=== PATIENT | male | born 1960 | race Caucasian/White ===

== ENCOUNTER 2018-08-13 09:19 | Inpatient (IN) | payer MEDICARE, OTHER ==
[~2018-08-13] VITALS: Ht 182.9 cm; Wt 104.7 kg
[~2018-08-13 09:19] MED LIST: ALBU90OI INH; Prednisone20 MG PO; SULTRIDS PO; Zithromax250 MG PO
[2018-08-13 10:36] LABS: BASOPHILS ABSOLUTE AUTO 0.18 K/mm3 (0.00-0.23); BASOPHILS PERCENT AUTO 1 % (0-2); EOSINOPHILS PERCENT AUTO 0 % (0-6); Hematocrit 42.2 % (37.0-53.0); Hemoglobin 14.3 g/dL (13.5-17.5); IMMATURE GRAN ABSOLUTE AUTO 1.21 K/mm3 (0.00-0.10); IMMATURE GRAN PERCENT AUTO 3 % (0-1); LYMPHOCYTES ABSOLUTE AUTO 1.85 K/mm3 (0.84-5.20); LYMPHOCYTES PERCENT AUTO 5 % (21-46); MONOCYTES ABSOLUTE AUTO 2.56 K/mm3 (0.16-1.47); MONOCYTES PERCENT AUTO 7 % (4-13); Mean Corpuscular HGB 33.6 pg (26.0-34.0); Mean Corpuscular HGB Conc 33.9 g/dL (31.5-36.5); Mean Corpuscular Volume 99 fL (80-100); Mean Platelet Volume 10.6 fL (9.1-12.4); NEUTROPHILS ABSOLUTE AUTO 33.36 K/mm3 (1.96-9.15); NEUTROPHILS PERCENT AUTO 85 % (41-73); Platelet Count 641 K/mm3 (150-400); RDW Coefficient Variation 13.2 % (11.7-14.2); RDW Standard Deviation 48.2 fL (35.1-46.3); Red Blood Cell Count 4.26 M/mm3 (4.30-5.90); White Blood Cell Count 39.16 K/mm3 (4.00-11.30)
[2018-08-13 10:42] LABS: PCO2 Arterial 36.4 mmHg (35-45); PO2 Arterial 49.9 mmHg (80-100); pH Blood Arterial 7.52 (7.35-7.45)
[2018-08-13 10:45] LABS: Calcium, Ionized (POC) 0.89 mmol/L (1.10-1.46); Chloride (POC) 96 mmol/L (98-108); Creatinine (POC) 0.7 mg/dL (0.8-1.3); Glucose (ISTAT POC) 219 mg/dL (70-99); Hemoglobin (POC) 14.6 g/dL (13.5-17.5); Potassium (POC) 4.8 mmol/L (3.5-5.5); Sodium (POC) 134 mmol/L (135-148); Total CO2 (POC) 30 mmol/L (21-32)
[2018-08-13 10:57] LABS: Alanine Aminotransfer (ALT/SGP 42 U/L (12-78); Albumin, Blood 1.8 g/dL (3.4-5.0); Albumin/Globulin Ratio 0.3 (0.8-1.8); Alk Phos 108 U/L (50-136); Anion Gap 14 mmol/L (6-16); Aspartate Aminotrans (AST/SGOT 39 U/L (12-37); Bilirubin, Total 0.9 mg/dL (0.1-1.0); Blood Urea Nitrogen 12 mg/dL (8-24); Bun/Creatinine Ratio 15.4 (12.0-20.0); CO2, Blood 26 mmol/L (21-32); Calcium, Blood 8.3 mg/dL (8.5-10.1); Chloride, Blood 94 mmol/L (98-108); Creatinine, Blood 0.78 mg/dL (0.60-1.20); Globulin, Blood 5.7 g/dL (2.2-4.0); Glomerular Filtration Rate >60 (60-); Glucose, Blood 212 mg/dL (70-99); Sodium, Blood 134 mmol/L (136-145); Total Protein, Blood 7.5 g/dL (6.4-8.2); Troponin I <0.015 ng/mL (0.000-0.040)
[2018-08-13 11:47] LABS: Source, Urine Catheter
[2018-08-13 11:54] LABS: Bilirubin, Urine Neg (Neg); Blood, Urine Neg (Neg); Glucose Qualitative, Urine Neg (Neg); Ketones, Urine Neg (Neg); Leukocyte Esterase, Urine 1+ (Neg); Nitrite, Urine Neg (Neg); Protein, Urine 2+ (Neg); Urobilinogen, Urine 4+ (Normal)
[2018-08-13 12:00] LABS: PCO2 Arterial 40.3 mmHg (35-45); PO2 Arterial 73.7 mmHg (80-100); pH Blood Arterial 7.45 (7.35-7.45)
[2018-08-13 12:08] LABS: Appearance, Urine Clear (Clear); Color, Urine Yellow (P-Yellow)
[2018-08-13 12:11] LABS: Bacteria Few /hpf; Granular Casts 0-2 /lpf (0); Hyaline Casts Rare /lpf (0-2); Red Blood Cells, Urine Not Seen /hpf (0-2); Squamous Epithelial Cells Few /hpf (Few)
[2018-08-13] MEDS ORDERED: AMLO5 PO (13:31)
[2018-08-13 14:00] LABS: Influenza A Negative (NEGATIVE); Influenza B Negative (NEGATIVE)
[2018-08-13 14:30] LABS: International Normalized Ratio 1.13; Prothrombin Time Results 11.6 Sec (9.7-11.5)
--- NOTE | 2018-08-13 16:30 | NUR ---
Recieved report from ROOF FOREMAN and took patient for pig tail chest tube in [place]. patient was slightly hypotensive and recieved order to have Levophed if drops MAP less than HR 60. He was intubated and OG in place. He has two IV's in L arm and infusing NS at 100ml/hr and changed to 200mlhr per order. He has 8.0 ET and 25cm at lips with vent setting AC16, TV 400, FiO2 100% and PEEP 5.0 and sats 90-92%. He is sedated with 65 mcg/min Propofol. He has several VS drops during procedure from laying almost supine for tube placement. He had 12Fr pigtail chest tub placed left posterior and they capped and chaim 50ml fluids for lab. He had BM during procedure. RT and i at 1600 pushed him to ICU 13 and several nursees assisted to clean up prior to transfer. He was slide transfer to ICU 13 bed and bath was given and all line and tubes cleaned up. His RR 30-45's. We hooked up drain bag and quickly got 1500 ml creamy white liquid with horrific smell and Dr Borges came by and stated to clamp and un clamp at 0400.
[2018-08-13 16:43] LABS: Albumin, Body Fluid 0.1 g/dL; Lactate Dehydrogenase, Body Fl 108 U/L; Protein, Body Fluid 0.3 g/dL
[2018-08-13 16:44] LABS: RBC Count, Body Fluid 180000 /mm3 (0-0)
[2018-08-13 16:50] LABS: Glucose, Body Fluid <1 mg/dL
[2018-08-13 17:02] LABS: Body Fluid WBC Count 63310 /mm3 (0-999)
[2018-08-13 18:28] LABS: Appearance, Body Fluid Cloudy (Clear); Color, Body Fluid L Yellow (None-Yellow)
--- NOTE | 2018-08-13 18:30 | NUR ---
Patient has RR of mid 40's and have tried Fentanyl and Ativan and little success and gave report to Jocelyn RN and Elsie RN and stated we could start Precedex to try to help RR. His Temp has climbed to 102.2 and gave 650mg Tylenol through OG and clampped. Placed fan as well on him to help cool. at 1700 he was reduced to FiO2 to 75% and has remain in the low 90%'s. Reported to them to unclamp tube at 0400. Son and came by and helpped with admission but had little knowledge. They stated they will take him home when dischaerged to take care of him, Number on board.
[2018-08-13 18:38] LABS: Total Cell Count, Body Fluid 100
[2018-08-13 18:50] LABS: pH, Body Fluid 7.5
--- NOTE | 2018-08-13 21:57 | NUR ---
ASSUMED CARE REPORT RECEIVED, CARE ASSUMED AT 1900. PT INTUBATED AND SEDATED. RR ELEVATED, PT FEBRILE AND HYPOTENSIVE. PRECEDEX, LEVOPHED INITIATED. RR IMPROVED WITH PRECEDEX, ATIVAN AND FENTANYL ADMIN BUT DOES CONTINUE TO BE ELEVATED. WET TOWEL PLACED OVER PATIENT FOR COOLING, FAN ALSO IN PLACE. CHEST TUBE CLAMPED PER MD ORDERS, TO BE UNCLAMPED AND DRAINED AT 0400. EUBANKS SECURED AND IN PLACE, DRAINING PINK/RED, FOUL SMELLING URINE. SEE ASSESSMENTS/FLOWSHEETS.
[2018-08-14 03:39] LABS: BASOPHILS ABSOLUTE AUTO 0.16 K/mm3 (0.00-0.23); BASOPHILS PERCENT AUTO 1 % (0-2); Hematocrit 40.6 % (37.0-53.0); Hemoglobin 13.1 g/dL (13.5-17.5); LYMPHOCYTES ABSOLUTE AUTO 1.58 K/mm3 (0.84-5.20); LYMPHOCYTES PERCENT AUTO 6 % (21-46); MONOCYTES ABSOLUTE AUTO 0.43 K/mm3 (0.16-1.47); MONOCYTES PERCENT AUTO 2 % (4-13); Mean Corpuscular HGB 33.6 pg (26.0-34.0); Mean Corpuscular HGB Conc 32.3 g/dL (31.5-36.5); Mean Platelet Volume 10.6 fL (9.1-12.4); Platelet Count 501 K/mm3 (150-400); RDW Coefficient Variation 13.5 % (11.7-14.2); RDW Standard Deviation 51.8 fL (35.1-46.3); White Blood Cell Count 26.37 K/mm3 (4.00-11.30)
[2018-08-14 03:41] LABS: EOSINOPHILS PERCENT AUTO 0 % (0-6); IMMATURE GRAN ABSOLUTE AUTO 0.11 K/mm3 (0.00-0.10); IMMATURE GRAN PERCENT AUTO 0 % (0-1); Mean Corpuscular Volume 104 fL (80-100); NEUTROPHILS ABSOLUTE AUTO 24.09 K/mm3 (1.96-9.15); NEUTROPHILS PERCENT AUTO 91 % (41-73)
[2018-08-14 03:59] LABS: Alanine Aminotransfer (ALT/SGP 30 U/L (12-78); Albumin, Blood 1.3 g/dL (3.4-5.0); Albumin/Globulin Ratio 0.3 (0.8-1.8); Alk Phos 68 U/L (50-136); Anion Gap 6 mmol/L (6-16); Aspartate Aminotrans (AST/SGOT 23 U/L (12-37); Bilirubin, Total 0.5 mg/dL (0.1-1.0); Blood Urea Nitrogen 10 mg/dL (8-24); Bun/Creatinine Ratio 16.4 (12.0-20.0); CO2, Blood 28 mmol/L (21-32); Calcium, Blood 7.8 mg/dL (8.5-10.1); Chloride, Blood 105 mmol/L (98-108); Creatinine, Blood 0.61 mg/dL (0.60-1.20); Globulin, Blood 4.7 g/dL (2.2-4.0); Glomerular Filtration Rate >60 (60-); Glucose, Blood 229 mg/dL (70-99); Potassium, Blood 3.5 mmol/L (3.5-5.5); Sodium, Blood 139 mmol/L (136-145)
[2018-08-14 04:03] LABS: PCO2 Arterial 49.8 mmHg (35-45); PO2 Arterial 71.6 mmHg (80-100); pH Blood Arterial 7.36 (7.35-7.45)
[2018-08-14 04:04] LABS: BAND PERCENT MAN 23 % (0-8); BASOPHILS PERCENT MAN 0 % (0-2); EOSINOPHILS PERCENT MAN 0 % (0-6); LYMPHOCYTES ABSOLUTE MAN 1.31 K/mm3 (0.84-5.20); LYMPHOCYTES PERCENT MAN 5 % (21-46); METAMYELOCYTE ABSOLUTE MAN 1.84 K/mm3 (0.00-0.00); METAMYELOCYTE PERCENT MAN 7 % (0-0); MONOCYTES ABSOLUTE MAN 0.79 K/mm3 (0.16-1.47); MONOCYTES PERCENT MAN 3 % (4-13); NEUTROPHILS ABSOLUTE MAN 22.41 K/mm3 (1.96-9.15); SEG NEUTROPHILS PERCENT MAN 62 % (41-73); TOTAL CELLS COUNTED 100
--- NOTE | 2018-08-14 04:35 | NUR ---
CHEST TUBE DRAINAGE PER MD ORDER, CHEST TUBE UNCLAMPED AT 0400. 200 ML REMOVED FROM BAG PRIOR TO UNCLAMPING. 200 ML DRAINED AFTER UNCLAMPING. BAG ALSO FILLED WITH AIR AND REQUIRED VENTING OF AIR FOR FURTHER DRAINAGE TO OCCUR. CONTINUES TO BE UNCLAMPED, DRAINING TO GRAVITY. PLAN TO CLAMP IF 1500 ML DRAINS. NO CHANGES IN 02 SATURATION. BREATH SOUNDS TO LEFT LUNG INCREASED WITH COARSENESS AND CRACKLES IN BASES.
--- NOTE | 2018-08-14 04:57 | NUR ---
VITALS/SEDATION UPDATE SINCE PT'S FEVER IMPROVED THIS MORNING, PT HAS HAD EPISODE OF DIAPHORESIS THAT WAS RESPONSIVE TO THE ADMINISTRATION OF LORAZEPAM. PT HAS TOLERATED DECREASED PROPOFOL WITH THE PRECEDEX INFUSING. RR IMPROVED FROM 40'S AND 50'S TO HIGH 20'S WITH THIS REGIME. LEVOPHED TURNED OFF PT'S BP HAS STABALIZED. HR CONTINUES IN 80'S.
--- NOTE | 2018-08-14 05:48 | NUR ---
SEDATION VACATION/WEAN SLOWLY TITRATED DOWN SEDATION PT TOLERATING. NO SPONTANEOUS BREATHING TRIAL FIO2 GREATER THAN 50%, 02 SAT LOW 90'S, RR CONTINUE TO BE ELEVATED.
--- NOTE | 2018-08-14 06:19 | NUR ---
SUMMARY PT REMAINS INTUBATED AND SEDATED. SEE PREVIOUS FLOWSHEETS/NOTES/ASSESSMENTS. SINCE PREVIOUS NOTE, CHEST TUBE CONTINUES TO BE TO GRAVITY DRAIN WITH SLOW OUTPUT.
--- NOTE | 2018-08-14 07:20 | NUR ---
RECEIVED REPORT AND ASSUMED CARE OF PATIENT. HE IS INTUBATED AND SEDATED AT THIS TIME. PROPOFOL AT 30 MCG/KG/MIN, PRECEDEX AT 0.7 MCG/KG/HR. VENT SETTINGS AT 16/400/5/80%. LUNG SOUNDS ARE COARSE T/O AND CRACKLES B/L LOWER LOBES. POST PIGTAIL LINE IS DRAINING TO GRAVITY, EUBANKS CATH IS DRAINING TO GRAVITY.
--- NOTE | 2018-08-14 08:10 | NUR ---
[id number] OF PATIENT CALLED TO GET AN UPDATE ON CONDITION, SHE STATED PT TOLD SHE AND HER THAT HE STOPPED DRINKING ALCOHOL ON 08/02, SHE WILL TRY TO VERIFY INFORMATION.
--- NOTE | 2018-08-14 10:43 | NUR ---
DR JACOBSON IN TO SEE PATIENT, CHANGE VENT SETTING TO SPONTANEOUS WITH PRESSURE SUPPORT OF 10, PEEP 5 AND FIO2 OF 60%. DISCUSSED STARTING TUBE FEED FOR THIS PATIENT. CONSULT WILL BE PLACED BY
[2018-08-14 13:52] LABS: Vancomycin, Trough 12.9 ug/mL (5.0-10.0)
--- NOTE | 2018-08-14 14:15 | NUR ---
RECEIVED REPORT FROM GLORIA SAVAGE RN, [facility], PATIENT IS VENTED AND SEDATED VIA PROPOFOL, INFUSING AT 30 MCG, EUBANKS CATHETER IN PLACE, OG TUBE AT LIS, MINIMAL OUTPUT, PIGTAIL DRAIN TO RIGHT POSTERIOR CHEST AREA DRAINING MILKY LIQUID, VENT SETTINGS ARE A/C 16/8 VT 400, FiO2 60 %, PATIENT IN RESTRAINTS, VANCOMYCIN INFUSING, WILL CONTINUE TO MONITOR.
--- NOTE | 2018-08-14 15:00 | NUR ---
RT IN TO ADVANCE ETT TUBE BY 3 CM TO A TOTAL OF 28 CM AT LIP, TUBE FEED STARTED ORDERED, PIVOT 1.5, STARTED AT 15 CC/HR, ADVANCE BY 10 CC/HR EVERY 8 HOURS WITH A GOAL OF 45 CC/HR, WATER FLUSHES 30 CC EVERY 4 HOURS, WILL CONTINUE TO MONITOR.
--- NOTE | 2018-08-14 15:20 | NUR ---
Spiritual care/advance directive visit attempted. Patient unable to communicate at this time.
--- NOTE | 2018-08-14 17:30 | NUR ---
PATIENT DAUGHTER IN LAW ON PHONE, UPDATE PROVIDED.
--- NOTE | 2018-08-14 17:50 | NUR ---
SHIFT SUMMARY NOTE: ASSUMED CARE OF PATIENT AT 1415 HOURS, PATIENT IS MECHANICALLY VENTILATED, SETTINGS ARE 16/5, VT 400, FiO2 60%, PATIENT IS SEDATED WITH PROPOFOL INFUSING AT 30 MCG/KG/HR, ALSO PRECEDEX INFUSING AT 0.7 MCG/KG/HR, EUBANKS CATHETER IN PLACE, DRAINING ADQUEATE AMOUNTS OF DARK YELLOW CLOUDY URINE, LEFT POSTERIOR PIGTAIL SHOWS MILKY AND CLOUDY DRAINAGE THAT HAS EXTREMELY FOUL SMELLING ODOR , PATIENT IS IN RESTRAINTS, TOLERATING FREQUENT REPOSITIONING WELL, ETT TUBE WAS ADVANCED BY 3 CM BY RT, PATIENT TOLERATED WELL, TUBE FEED STARTED AT 15 CC/HR TO BE INCREASED BY 10 CC/HR EVERY 8 HOURS, WITH 30 CC WATER FLUSH EVERY 4 HOURS, BANANA BAG INFUSING, FOR DETAILS SEE SHIFT ASSESSMENT DOCUMENTATION WILL CONTINUE TO MONITOR AND GIVE REPORT TO ONCOMING FUNERAL DIRECTOR AND EMBALMER.
--- NOTE | 2018-08-14 19:35 | NUR ---
CARE ASSUMED REPORT RECEIVED, CARE ASSUMED. PT INTUBATED AND SEDATED WITH PROPOFOL AND PRECEDEX. BILAT WRIST RESTRAINTS IN PLACE. PIGTAIL CHEST TUBE TO LEFT POSTERIOR CHEST CONTINUES TO BE UNCLAMPED TO GRAVITY DRAIN WITH SLOW DRAINAGE. EUBANKS DRAINING CAREN URINE. OG INFUSING PIVOT 1.5 AT 15 ML/HR. PLAN IS TO ADVANCE QH8 BY 10 FOR [employer] OF 45 ML/HR. VITALS STABLE, SEE FLOWSHEEET. SEE SHIFT ASSESSMENT.
--- NOTE | 2018-08-15 00:50 | NUR ---
SEDATION REASSESSMENT PT CONTINUES TO HAVE INCREASED RESPIRATIONS WITH ONLY SLIGHT IMPROVEMENT FROM FENTANYL. WITH BATH PT NOTED TO HAVE MINIMAL RESPONSES. PROPOFOL TITRATED DOWN TO ATTEMPT ART TRACER SEDATION FOR NEUROLOGICAL MONITORING. SINCE TITRATION RESPIRATIONS HAVE REMAINED CONSISTENT. WILL CONTINUE TO MONITOR CLOSELY AND TITRATE PRECEDEX AND PROPOFOL PT TOLERATES.
[2018-08-15 04:06] LABS: Hematocrit 36.2 % (37.0-53.0); Hemoglobin 11.8 g/dL (13.5-17.5); Mean Corpuscular HGB 33.7 pg (26.0-34.0); Mean Corpuscular HGB Conc 32.6 g/dL (31.5-36.5); Mean Corpuscular Volume 103 fL (80-100); Mean Platelet Volume 10.8 fL (9.1-12.4); Platelet Count 418 K/mm3 (150-400); RDW Coefficient Variation 13.6 % (11.7-14.2); RDW Standard Deviation 52.1 fL (35.1-46.3); White Blood Cell Count 25.32 K/mm3 (4.00-11.30)
[2018-08-15 04:24] LABS: Alanine Aminotransfer (ALT/SGP 19 U/L (12-78); Albumin/Globulin Ratio 0.2 (0.8-1.8); Alk Phos 64 U/L (50-136); Anion Gap 5 mmol/L (6-16); Aspartate Aminotrans (AST/SGOT 33 U/L (12-37); Bilirubin, Total 0.4 mg/dL (0.1-1.0); Blood Urea Nitrogen 13 mg/dL (8-24); Bun/Creatinine Ratio 19.3 (12.0-20.0); CO2, Blood 30 mmol/L (21-32); Calcium, Blood 7.4 mg/dL (8.5-10.1); Chloride, Blood 110 mmol/L (98-108); Creatinine, Blood 0.67 mg/dL (0.60-1.20); Globulin, Blood 4.2 g/dL (2.2-4.0); Glomerular Filtration Rate >60 (60-); Glucose, Blood 169 mg/dL (70-99); Magnesium, Blood 2.5 mg/dL (1.6-2.4); Phosphorus, Blood 1.4 mg/dL (2.5-4.9); Sodium, Blood 145 mmol/L (136-145); Total Protein, Blood 5.2 g/dL (6.4-8.2)
[2018-08-15 04:26] LABS: BAND PERCENT MAN 18 % (0-8); BASOPHILS PERCENT MAN 0 % (0-2); EOSINOPHILS PERCENT MAN 0 % (0-6); LYMPHOCYTES PERCENT MAN 2 % (21-46); METAMYELOCYTE ABSOLUTE MAN 0.25 K/mm3 (0.00-0.00); METAMYELOCYTE PERCENT MAN 1 % (0-0); MONOCYTES ABSOLUTE MAN 0.75 K/mm3 (0.16-1.47); MONOCYTES PERCENT MAN 3 % (4-13); SEG NEUTROPHILS PERCENT MAN 76 % (41-73); TOTAL CELLS COUNTED 100
--- NOTE | 2018-08-15 06:10 | NUR ---
SEDATION/NEURO STATUS AFTER SLOW TITRATION, PT AROUSE TO VERBAL STIMULI AND FOLLOWED COMMANDS. RE-SEDATED FOR INCREASED RESPIRATIONS AND SPASMATIC COUGHING.
--- NOTE | 2018-08-15 07:09 | NUR ---
SUMMARY PT INTUBATED, VENT SETTINGS UNCHANGED THROUGOUT SHIFT. NO SBT THIS MORNING PER RT PT'S FIO2 ELEVATED. UNABLE TO TITRATE FIO2 DUE TO LOW 90'S SPO2. VITALS STABLE THROUGHOUT SHIFT. PT TOLERATING TUBE FEEDS WITH MINIMAL RESIDUALS. CHEST TUBE CONTINUES TO DRAIN CREAM FLUID. ODOR OF FLUID DECREASING. SEE FLOWSHEETS/ASSESSMENTS.
--- NOTE | 2018-08-15 07:15 | NUR ---
START OF SHIFT NOTE: PATIENT CONTINUOUS ON MECHANICAL VENTILATION, SEDATED VIA PROPOFOL AT 20 MCG/KG/HR, PRECEDEX AT 0.4 MCG/KG/HR, ORAL CARE PROVIDED, EUBANKS CATHETER IN PLACE, LEFT POSTERIOR PIGTAIL DRAIN WITH MINIMAL AMOUNT OF MILKY WHITE DRAINAGE, LS CLEAR, NSR, BTS PRESENT, SKIN INTACT WILL CONTINUE TO MONITOR.
--- NOTE | 2018-08-15 09:32 | NUR ---
DR. JACOBSON IN TO SEE PATIENT, SPONTANEOUS BREATHING TRIAL STARTED BY RT TINY, AT 0925, PROPOFOL DECREASED TO 10 MCG AND PRECEDEX DECREASED TO 0.2, WILL CONTINUE TO MONITOR.
--- NOTE | 2018-08-15 10:11 | NUR ---
SDPONTANEOUS BREATHING TRIAL STOPPED PER DR. JACOBSON, D/T PATIENT SHOWING A SMALL LEFT APICAL PNEUMOTHORAX, RT IN ROOM WITH PATIENT, REINSTATING ORIGINAL SETTINGS.
[2018-08-15 13:18] LABS: Vancomycin, Trough 17.7 ug/mL (5.0-10.0)
--- NOTE | 2018-08-15 17:59 | NUR ---
SHIFT SUMMARY NOTE: PATIENT CONTINUOUS TO BE VENTED, SETTINGS ARE 16/5, VT 400, FiO2 100 %, RT IN MULTIPLE TIMES TO SUCTION PATIENT, LEFT POSTERIOR PIGTAIL DRAIN IN PLACE AND DRAINING THICK MILKY LIQUID WITH FOUL SMELL, DR. JACOBSON NOTIFIED ABOUT PATIENT'S VENT SETTINGS, NSR/ST, RR FLUCTUATING BETWEEN 20-40, PATIENT SEDATED WITH PROPOFOL AT 30 MCG, AND PRECEDEX AT 0.7 AT THIS TIME, PER DR. JACOBSON INCREASE SEDATION TO MAXIMUM IF NEEDED AND TELEPHONE ORDER TO INCREASE PEEP TO 8, IF PATIENT DOES WELL, DECREASE PEEP SLOWLY DURING NIGHT BY RT, PATIENT ON SODIUM BICARB, VANCOMYCIN AND ZOSYN, ALSO RECEIVED POSTASSIUM CHLORIDE AND POTASSIUM PHOSPHATE REPLACEMENT, ELECTROLYTE PROTOCOL IN PLACE, EUBANKS CATHETER DRAINING ADEQUATE AMOUNT OF CLOUDY YELLOW URINE, FOR DETAILS SEE SHIFT ASSESSMENT DOCUMENTATION, WILL CONTINUE TO MONITOR AND GIVE REPORT TO ONCOMING END PACKER.
--- NOTE | 2018-08-15 21:01 | NUR ---
CARE ASSUMED REPORT RECEIVED, CARE ASSUMED. PT REMAINS INTUBATED AND SEDATED. RR ELEVATED, MEDICATED WIH FENTANYL. VENT SETTING REQUIRMENTS INCREASED, RESPIRATORY THERAPY AT BEDSIDE TO DISCUSS PLAN OF TITRATING FIO2 PT TOLERATES ONCE RR IS BETTER CONTROLLED. PIGTAIL CHEST TUBE TO LEFT POSTERIOR CONTINUES TO BE IN PLACE. MINIMAL OUTPUT NOTED AT THIS TIME. PT MINIMALLY RESPONSIVE TO PAIN. CLENCHES JAW WITH ORAL CARE. TEMP ELEVATED, MEDICATED WITH TYLENOL AND SHEETS REMOVED. BP/HR STABLE. EUBANKS CONTINUES TO DRAIN CLEAR YELLOW URINE. TUBE FEED AT GOAL RATE. SEE FLOWSHEETS. SEE ASSESSMENTS.
--- NOTE | 2018-08-16 | NUR ---
ASSUMED CARE REPORT AND ASSESSMENT COMPLETED. PT INTUBATED AT AC16/400/60%/5 AND SEDATED VIA PROPOFOL AND PRECEDEX. TF AT GOAL, RESIDUAL AT 40ML. MEDICATED WITH FENTANYL D/T RR >40, PER AM REPORT PROPOFOL NOT TO BE TITRATED >45. LEFT LATERAL PIG TAIL IN PLACE WITH MINIMAL OUTPUT. VSS, UOP ADEQUATE.
[2018-08-16 04:12] LABS: Hematocrit 34.8 % (37.0-53.0); Hemoglobin 11.2 g/dL (13.5-17.5); Mean Corpuscular HGB 32.8 pg (26.0-34.0); Mean Corpuscular HGB Conc 32.2 g/dL (31.5-36.5); Mean Corpuscular Volume 102 fL (80-100); Mean Platelet Volume 10.9 fL (9.1-12.4); Platelet Count 433 K/mm3 (150-400); RDW Coefficient Variation 14.1 % (11.7-14.2); RDW Standard Deviation 53.1 fL (35.1-46.3); Red Blood Cell Count 3.41 M/mm3 (4.30-5.90); White Blood Cell Count 26.12 K/mm3 (4.00-11.30)
[2018-08-16 04:30] LABS: BAND PERCENT MAN 10 % (0-8); BASOPHILS PERCENT MAN 0 % (0-2); EOSINOPHILS PERCENT MAN 0 % (0-6); LYMPHOCYTES ABSOLUTE MAN 1.56 K/mm3 (0.84-5.20); LYMPHOCYTES PERCENT MAN 6 % (21-46); MONOCYTES ABSOLUTE MAN 0.78 K/mm3 (0.16-1.47); MONOCYTES PERCENT MAN 3 % (4-13); MYELOCYTE ABSOLUTE MAN 0.26 K/mm3 (0.00-0.00); MYELOCYTE PERCENT MAN 1 % (0-0); SEG NEUTROPHILS PERCENT MAN 80 % (41-73); TOTAL CELLS COUNTED 100
[2018-08-16 04:32] LABS: Alanine Aminotransfer (ALT/SGP 21 U/L (12-78); Albumin/Globulin Ratio 0.2 (0.8-1.8); Alk Phos 84 U/L (50-136); Anion Gap 6 mmol/L (6-16); Aspartate Aminotrans (AST/SGOT 38 U/L (12-37); Bilirubin, Total 0.3 mg/dL (0.1-1.0); Blood Urea Nitrogen 15 mg/dL (8-24); Bun/Creatinine Ratio 23.4 (12.0-20.0); CO2, Blood 28 mmol/L (21-32); Calcium, Blood 6.8 mg/dL (8.5-10.1); Chloride, Blood 113 mmol/L (98-108); Creatinine, Blood 0.64 mg/dL (0.60-1.20); Globulin, Blood 4.3 g/dL (2.2-4.0); Glomerular Filtration Rate >60 (60-); Glucose, Blood 182 mg/dL (70-99); Magnesium, Blood 2.4 mg/dL (1.6-2.4); Phosphorus, Blood 2.4 mg/dL (2.5-4.9); Potassium, Blood 3.3 mmol/L (3.5-5.5); Sodium, Blood 147 mmol/L (136-145); Total Protein, Blood 5.3 g/dL (6.4-8.2)
--- NOTE | 2018-08-16 05:58 | NUR ---
CALL TO DR JACOBSON UPDATED MD ON IONIZED CALCIUM LEVEL AND SODIUM. DR ORDERED CA GLUCONATE AND WILL REVIEW SODIUM LATER TODAY. WILL ORDER ADDITIONAL ELECTROLYTE REPLACEMENT OFF ELECTROLYTE PROTOCOL.
--- NOTE | 2018-08-16 06:20 | NUR ---
SHIFT SUMMARY PT REMAINS INTUBATED, NO CHANGE TO PREVIOUSLY NOTED SETTINGS. PROPOFOL NOW AT 35MCG/KG/MIN WITH PRECEDEX AT 0.7MCG/KG/HR. PT HAS BEEN MEDICATED X 4 WITH FENTANYL TO DECREASE RR >40. LEFT LATERAL CHEST PIGTAIL REMAINS IN PLACE WITH LESS FOUL SMELLING FLUID THIS SHIFT, TRACHEA MIDLINE, NO SQ AIR. TF AT GOAL W/ MINIMAL RESIDUALS. NO SBT COMPLETED D/T RESPIRATORY RATE WHILE ON SEDATION CONSISTENTLY >40.
--- NOTE | 2018-08-16 08:47 | NUR ---
RECEIVED REPORT AND ASSUMED CARE OF PATIENT. PT IS SEDATED AND INTUBATED AT THIS TIME. PT RR 35-40, ADMINISTERED 100 MCG OF FENTYNAL. VENT SETTINGS 16/400/8/50%. PROPOFOL RUNNING AT 35, PRECEDEX RUNNING AT 0.7. TUBE FEEDING CONTINUING AT 45. POST PIGTAIL DRAINING TO GRAVITY, EUBANKS DRAINING TO GRAVITY.
--- NOTE | 2018-08-16 11:10 | NUR ---
DR JACOBSON AT BEDSIDE TO DO ULTRASOUND. VISUALIZED LUNGS AND WILL DO A BRONCOSCOPY. CONSENT OBTAINED FROM [id number] AT BEDSIDE AND SON VIA TELEPHONE.
--- NOTE | 2018-08-16 12:58 | NUR ---
DR JACOBSON AT BEDSIDE TO DO BRONCOSCOPE PROCEDURE. RT AT BEDSIDE. GAVE VERSED AND FENTYNAL PER VERBAL ORDER, SEE MAR FOR DOSE DETAILS.
[2018-08-16 13:26] LABS: Potassium, Blood 4.1 mmol/L (3.5-5.5); Vancomycin, Trough 18.6 ug/mL (5.0-10.0)
--- NOTE | 2018-08-16 18:11 | NUR ---
SHIFT SUMMARY: PATIENT HAS CONTINUED TO BE INTUBATED AND SEDATED THROUGHOUT THE SHIFT. PROPOFOL AT 35 MCG/KG/MIN, PRECEDEX AT 0.7 MCG/KG/HR. VENT SETTINGS ARE AC: 16/400/8/55%, RR 26 AT THIS TIME. PT HAS RESPONDED WELL TO FENTYNAL DRIP STARTED TODAY, RUNNING AT 100 MCG/HOUR, PT HAS RESPONDED WELL AND B/P HAS CONTINUED TO BE STABLE. TEMP IS AT 100.8, ONE DOSE TYLENOL GIVEN DURING THIS SHIFT. WILL CONTINUE TO MONITOR PATIENT AND GIVE REPORT TO SABRINA RN.
--- NOTE | 2018-08-16 19:15 | NUR ---
ASSUMING CARE OF PT AT THIS TIME. PT REPORT RECEIVED AT BEDSIDE WITH OFFGOING NURSES, GLORIA RN AND ENEDINA RN. PT LAYING IN BED, INTUABTED AND SEDATED UPON ENTERING THE ROOM. VS STABLE - SEE VS FS. PT DOES NOT APPEAR TO BE IN DISTRESS AT THIS TIME. WILL REVIEW PLAN OF CARE.
--- NOTE | 2018-08-16 19:30 | NUR ---
ASSESSMENT PT CALM, QUIET, COOPERATIVE, RESPONDS TO VERBAL STIMULI, SPONT OPENS EYES, NODDING HEAD Y/N TO MOST QUESTIONS, FOLLOWS COMMADNS (ABLE TO MOVE TOES AND LIVESTOCK PRODUCER ON COMMAND), SLOW TO RESPOND, TRAKCING WITH EYES. PRECEDEX DRIP 0.7 MCG/KG/HR - BREANA TITRATE TO EFFECT. PROPOFOL 35 MCG/KG/MIN - WILL TITRATE TO EFFECT. SENSATION INTACT. PT DENIES N/T. PT LINARES. WEAKNESS NOTED. PT DENIES PAIN/DISCOMFORT AT THIS TIME. CONT FENT DRIP @ 100 MCG/HR. LUNGS COARSE, LOWER LOBES DIMINISHED. VENT SETTINGS: AC 16, TV 400, PEEP 8, FIO2 55%. OXY SAT 90%. RR 30'S. SUCTION VIA ETT: LARGE AMOUNTS OF THIN CLEAR SECRETIOSN. BRONCH COMPLETED THIS AM. TEMP 100.8 - ROOM TEMP DOWN, BLANKETS OFF, FAN ON, TYLENOL PRN. ST. HR 110'S. BP STABLE - SEE VS FS. STRONG PULSES. WARM, PINK SKIN. EDEMA NOTED. ACTIVE BT X4 QUADRANTS. ABD SOFT, NONTENDER, MOD DIST. OG IN PLACE. TF: PIVOT 1.5 AT GOAL RATE 45 ML/HR AND 150ML FLUSH Q4 HR. RESIDUAL 40 ML. F/C - CLEAR, YELLOW URINE NOTED. PIV X1. PICC RUCHI. NS TKO AT 10 ML/HR X2 BAGS. BANANA BAG INFUSING. PIGTAIL LEFT POSTERIOR WALL DRAINIGN TO GRAVITY - CLEAR, YELLOW TO THICK WHITE SECERTIONS NOTED.
--- NOTE | 2018-08-16 20:20 | NUR ---
DR. JACOBSON CURRENT VENT SETTINGS: AC 16, TV 400, PEEP 8, FIO2 100%. JAVIER RT AND MAGGIE ADAMSON CONT TO TITRATE FIO2 TO MAINTAIN SPO2 90% AND GREATER. CONT LARGE AMOUNTS OF CLEAR/WHITE SECRETIONS. DECREASING SECRETIONS NOTED. RR 40'S. INCREASED PROPOFOL DRIP 45 MCG/KG/MIN. [facility] INSTRUCTED TO NOT EXCEED PROPOFOL 45 MCG/KG/MIN. PRECEDEX 0.7 MCG/KG/HR. FENT 100 MCG/HR. PT DENIES PAIN/DISCOMFORT. RR DECREASED TO 30'S AFTER TITRATING PROPOFOL. UPDATED DR. JACOBSON OF PT'S STATUS. DR. JACOBSON INSTRUCTED TO ORDER STAT CHEST XRAY FOR POSSIBLE PNEUMOTHORAX. BRICK CARRIER INFORMED OF STAT CHEST XRAY. DR. CELESTE INSTRUCTED TO CONT TO SUCTION INDICATED. DR. JACOBSON ALSO INSTRUCTED TO INCREASE PEEP UP TO 12 IF INDICATED. INFROMED RT JAVIER OF NEW VENT ORDER. DR. JACOBSON ALSO ORDERED NIXBEX DRIP IF RR REMAINS 40'S AND GREATER.
--- NOTE | 2018-08-16 20:58 | NUR ---
DR. PHOENIX CALLED DR. PHOENIX TO VIEW CHEST XRAY. DR. PHOENIX STATED "THERE ARE NO CHANGES FROM PREVIOUS CHEST XRAY".
--- NOTE | 2018-08-16 22:50 | NUR ---
DR. JACOBSON PROPOFOL 45 MCG/KG/MIN. PRCEDEX 0.7 MCG/KG/HR. FENT 100 MCG/HR. VENT SETTINGS: AC 16, TV 400, PEEP 10, FIO2 90%. RR 20'S TO 30'S. OCC INCREASE PEAK PRESSURE TO 30'S. DOUBLE STACKING OF BREATHS. INFORMED DR. JACOBSON OF PT'S STATUS. DR. JACOBSON DOES NOT WANT TO INCREASE SEDATION AT THIS TIME. DR. JACOBSON DOES NOT WANT TO START NIMBEX AT THIS TIME. DR. JACOBSON INSTRUCTED TO START NIMBEX DRIP IF RR 40'S. NO NEW ORDERS AT THIS TIME.
[2018-08-17 03:29] LABS: Hematocrit 35.1 % (37.0-53.0); Hemoglobin 11.1 g/dL (13.5-17.5); Mean Corpuscular HGB 33.5 pg (26.0-34.0); Mean Corpuscular HGB Conc 31.6 g/dL (31.5-36.5); Mean Platelet Volume 10.9 fL (9.1-12.4); Platelet Count 413 K/mm3 (150-400); RDW Coefficient Variation 14.5 % (11.7-14.2); RDW Standard Deviation 56.4 fL (35.1-46.3); Red Blood Cell Count 3.31 M/mm3 (4.30-5.90); White Blood Cell Count 25.09 K/mm3 (4.00-11.30)
[2018-08-17 03:34] LABS: Mean Corpuscular Volume 106 fL (80-100)
[2018-08-17 03:48] LABS: BAND PERCENT MAN 3 % (0-8); BASOPHILS PERCENT MAN 0 % (0-2); EOSINOPHILS PERCENT MAN 4 % (0-6); LYMPHOCYTES PERCENT MAN 4 % (21-46); MONOCYTES ABSOLUTE MAN 1.25 K/mm3 (0.16-1.47); MONOCYTES PERCENT MAN 5 % (4-13); NEUTROPHILS ABSOLUTE MAN 21.82 K/mm3 (1.96-9.15); SEG NEUTROPHILS PERCENT MAN 84 % (41-73); TOTAL CELLS COUNTED 100
[2018-08-17 03:49] LABS: Alanine Aminotransfer (ALT/SGP 25 U/L (12-78); Albumin/Globulin Ratio 0.2 (0.8-1.8); Alk Phos 85 U/L (50-136); Anion Gap 5 mmol/L (6-16); Aspartate Aminotrans (AST/SGOT 27 U/L (12-37); Bilirubin, Total 0.3 mg/dL (0.1-1.0); Blood Urea Nitrogen 14 mg/dL (8-24); Bun/Creatinine Ratio 22.8 (12.0-20.0); CO2, Blood 29 mmol/L (21-32); Calcium, Blood 7.3 mg/dL (8.5-10.1); Chloride, Blood 113 mmol/L (98-108); Creatinine, Blood 0.61 mg/dL (0.60-1.20); Globulin, Blood 4.3 g/dL (2.2-4.0); Glomerular Filtration Rate >60 (60-); Glucose, Blood 135 mg/dL (70-99); Magnesium, Blood 2.2 mg/dL (1.6-2.4); Phosphorus, Blood 3.3 mg/dL (2.5-4.9); Potassium, Blood 4.1 mmol/L (3.5-5.5); Sodium, Blood 147 mmol/L (136-145); Total Protein, Blood 5.3 g/dL (6.4-8.2)
--- NOTE | 2018-08-17 04:43 | NUR ---
SHIFT ASSESSMENT PT CALM, QUIET, COOPERATIVE, RESPONDS TO VERBAL STIMULI, SPONT OPENS EYES, NODDING HEAD Y/N TO QUESTIONS, FOLLOWS COMMANDS (ABLE TO MVOE TOES AND GILL BOX OPERATOR ON COMMAND), SLOW TO RESPOND, TRACKING WITH EYES. PRECEDEX 0.7 MCG/KG/HR - CONT TO TITRATE TO EFFECT. PROPOFOL 45 MCG/KG/MIN - CONT TO TITRATE TO EFFECT. SENSATION INTACT. DENIES N/T. PT LINARES. WEAKNESS NOTED. PT DENIED PAIN/DISCOFMORT T/O SHIFT, BUT OCC FACIAL GRIMACING NOTED. CONT FENT DRIP AT 100 MCG/HR. LUNGS COARSE, LOWER LOBES DIMINISHED. VENT SETTINGS: AC 16, TV 400, PEEP 10, FIO2 70%. PEEP INCREASED FROM 8 TO 10 DURING SHIFT D/T OXY SAT <90%. CONT TO TITRATE FIO2 TO MAINTIAN SPO2 90% AND GREATER. RR 16 TO 40'S T/O SHIFT. DECREASED RR NOTED WITH INCREASING SEDATION. DECREASING SUCTION VIA ETT T/O SHIFT. CURRENTLY SUCTIONING SCANT AMOUNTS OF THIN CLEAR SECRETIONS. TMAX 100.9 - TYLENOL PRN, ROOM TEMP DOWN, BLANKETS OFF, FAN ON. NSR TO ST. HR 70'S TO 110'S. BP STABLE - SEE VS FS. STRONG PULSES. WARM, PINK SKIN. EDEMA NOTED. ACTIVE BT X4 QUADRATNS. ABD SOFT, NONTENDER, MOD DIST. OG IN PLACE. TF: PIVOT 1.5 AT GOAL RATE 45 ML/HR ADN 150 ML FLUSH Q4 HR. LAST RESIDUAL 200 ML. F/C - CLEAR YELLOW URINE NOTED. PIV X1 - SL. NS TKO AT 10 ML/HR. CHEST TUBE LEFT POSTERIOR WALL DRAINING TO GRAVITY - CLEAR, YELLOW TO THICK WHITE SECRETIONS NOTED. WILL CONT TO MONITOR PT AND WILL PROVIDE BEDSIDE REPORT TO ONCOMING NURSE THIS AM.
--- NOTE | 2018-08-17 06:28 | NUR ---
DR. KAVON JACOBSON CALLED ICU AT THIS TIME. UPDATED DR. JACOBSON OF PT'S STATUS. NO NEW ORDERS AT THIS TIME. DR. JACOBSON DOES NOT WANT AM CHEST XRAY.
--- NOTE | 2018-08-17 08:20 | NUR ---
RECEIVED REPORT AND ASSUMED CARE OF PATIENT. HE IS INTUBATED AND SEDATED AT THIS TIME. PROPOFOL RUNNING AT 45 MCG/KG/MIN, PRECEDEX AT 0.7 MCG/KG/HR AND FENTYNAL AT 125 MCG/HOUR. PT VENT SETTINGS ARE 16/400/10/65%. WHEN FIRST ASSESSING PT, HE IS ASYCHRONOUS WITH THE VENT. INCREASED FENTYNAL FROM 100 MCG TO 150 MCG. PT HAS EUBANKS DRAINING TO GRAVITY AND POSTERIOR PIGTAIL CHEST DRAINING TO GRAVITY. DISCHARGE FOR THE CHEST DRAIN IS THICKER AND MORE MUCOUS LOOKING THIS AM FROM YESTERDAY DAY SHIFT. WILL CONTINUE TO MONITOR. PT IS DIAPHORETIC AND CLAMMY, CHANGED FAN POSITION, PUT COOL CLOTHS ON PATIENT AND WILL CONTINUE TO MONITOR TEMP AND TREAT PER ORDERS.
--- NOTE | 2018-08-17 18:41 | NUR ---
SHIFT SUMMARY: PT REMAINS INTUBATED AND SEDATED THROUGHOUT THE SHIFT. PROPFOL RUNNING AT 40 MCG/KG/MIN, PRECEDEX AT 0.7 MCG/KG/HR AND FENTYNAL RUNNING AT 75 MCG/HR. VENT SETTINGS 16/400/10/60% RR HAS BEEN RANGING BETWEEN 20-30. FAMILY AND FRIENDS AT BEDSIDE OFF AND ON DURING SHIFT. PT CONTINUES TO BE DIAPHORETIC, USING FAN AND TREATING FEVER WHEN NECESSARY. EUBANKS DRAINING TO GRAVITY. PIGTAIL CHEST DRAIN TO GRAVITY ONLY SCANT AMOUNT OF DISCHARGE INTO BAG, NOT ENOUGH TO COUNT ON THIS SHIFT. DR LOVE HAD US USE ATIVAN PUSHES THAT WERE HELPFUL TODAY, USED 1 MG TWO TIMES. WILL CONTINUE TO MONITOR AND GIVE REPORT TO SABRINA SERRANO.
--- NOTE | 2018-08-17 19:15 | NUR ---
ASSUMING CARE OF PT AT THIS TIME. PT REPORT RECEIVED AT BEDSIDE WITH OFFGOING NURSE, GLORIA SERRANO. PT LAYING IN BED, INTUBATED AND SEDATED UPON ENTERING THE ROOM. VS STABLE - SEE VS FS. PT DOES NOT APPEAR TO BE IN DISTRESS AT THIS TIME. WILL REVIEW PLAN OF CARE.
--- NOTE | 2018-08-17 19:30 | NUR ---
ASSESSMENT PT CALM, RESPONDS TO PAINFUL STIMULI, SPONT OPENING EYES, NOT TRACKING WITH EYES, NOT NODDING HEAD Y/N TO QUESTIONS, NOT FOLLOWING COMMANDS. PRECEDEX DRIP 0.7 MCG/KG/HR - WILL TITRATE TO EFFECT. TITRATED PROPOFOL DRIP TO 35 MCG TO DECREASE SEDATION - WILL TITRATE TO EFFECT. GENEVA SENSATION. PT LINARES. GROSS, WEAK MOVEMENT. LESS MOVEMENT NOTED THIS PM. NO S/SX OF PAIN/DISCOFMORT NOTED. CONT FENT DRIP @ 75 MCG/HR. LUNGS COARSE, MIDDLE AND LOWER LOBES DIMINISHED. VENT SETTINGS: AC 16, TV 400, PEEP 10, FIO2 65%. OXY SAT >95%. RR 16. SUCTION VIA ETT: SMALL AMOUNTS OF THICK WHITE/CLEAR SECRETIONS. TEMP 100.6 - ROOM TEMP DOWN, BLANKET SOFF, FAN ON, TYLENOL PRN. ST. HR 100'S TO 110'S. BP STABLE - SEE VS FS. STRONG PULSES. WARM, PNK SKIN. EDEMA NOTED. ACTIVE BT X4 QUADRANTS. ABD SOFT, NONTENDER, MOD DIST. OG IN PLACE. TF: PIVOT 1.5 AT GOAL RATE 45 ML/HR AND 150 ML FLUSH Q4 HR. RESIDUAL 0. F/C - CLEAR, YELLOW URINE NOTED. PIV X1. PICC RUCHI. NS TKO AT 10 ML/HR X2 BAGS. BANANA BAG INFUSING. CHEST TUBE LEFT POSTERIOR WALL DRAINING TO GRAVIEYT - CLEAR, YELLOW TO THICK WHITE SECRETIONS, CLOUDY.
--- NOTE | 2018-08-17 20:35 | NUR ---
DR. IVAN LOVE IN ROOM TO SEE PT AT THIS TIME. DR. LOVE INSTRUCTED TO STOP BANANA BAG AT THIS TIME. BANANA BAG D/C AT THIS TIME. DR. LOVE INSTRUCTED TO CONT TO MINIMIZE SEDATION. OTHERWISE, NO NEW ORDERS AT THIS TIME.
--- NOTE | 2018-08-17 20:42 | NUR ---
DR. LOVE INCREASING BP NOTED WITH DECREASING SEDATION. DR. LOVE ORDERED PRN HYDRALAZINE FOR HYPERTENSION.
[2018-08-18 03:37] LABS: BASOPHILS ABSOLUTE AUTO 0.13 K/mm3 (0.00-0.23); BASOPHILS PERCENT AUTO 1 % (0-2); EOSINOPHILS ABSOLUTE AUTO 0.27 K/mm3 (0.00-0.68); EOSINOPHILS PERCENT AUTO 1 % (0-6); Hematocrit 37.1 % (37.0-53.0); Hemoglobin 11.4 g/dL (13.5-17.5); IMMATURE GRAN ABSOLUTE AUTO 1.29 K/mm3 (0.00-0.10); IMMATURE GRAN PERCENT AUTO 5 % (0-1); LYMPHOCYTES ABSOLUTE AUTO 1.44 K/mm3 (0.84-5.20); LYMPHOCYTES PERCENT AUTO 5 % (21-46); MONOCYTES ABSOLUTE AUTO 1.05 K/mm3 (0.16-1.47); MONOCYTES PERCENT AUTO 4 % (4-13); Mean Corpuscular HGB 33.5 pg (26.0-34.0); Mean Corpuscular HGB Conc 30.7 g/dL (31.5-36.5); Mean Platelet Volume 11.2 fL (9.1-12.4); NEUTROPHILS ABSOLUTE AUTO 22.93 K/mm3 (1.96-9.15); NEUTROPHILS PERCENT AUTO 85 % (41-73); Platelet Count 413 K/mm3 (150-400); RDW Coefficient Variation 14.5 % (11.7-14.2); RDW Standard Deviation 58.7 fL (35.1-46.3); White Blood Cell Count 27.11 K/mm3 (4.00-11.30)
[2018-08-18 03:38] LABS: Mean Corpuscular Volume 109 fL (80-100)
[2018-08-18 03:56] LABS: BAND PERCENT MAN 1 % (0-8); BASOPHILS PERCENT MAN 0 % (0-2); EOSINOPHILS ABSOLUTE MAN 0.27 K/mm3 (0.00-0.68); EOSINOPHILS PERCENT MAN 1 % (0-6); LYMPHOCYTES ABSOLUTE MAN 1.62 K/mm3 (0.84-5.20); LYMPHOCYTES PERCENT MAN 6 % (21-46); MONOCYTES ABSOLUTE MAN 0.54 K/mm3 (0.16-1.47); MONOCYTES PERCENT MAN 2 % (4-13); NEUTROPHILS ABSOLUTE MAN 24.67 K/mm3 (1.96-9.15); SEG NEUTROPHILS PERCENT MAN 90 % (41-73); TOTAL CELLS COUNTED 100
[2018-08-18 04:05] LABS: Alanine Aminotransfer (ALT/SGP 31 U/L (12-78); Albumin/Globulin Ratio 0.2 (0.8-1.8); Alk Phos 101 U/L (50-136); Anion Gap 3 mmol/L (6-16); Aspartate Aminotrans (AST/SGOT 28 U/L (12-37); Bilirubin, Total 0.3 mg/dL (0.1-1.0); Blood Urea Nitrogen 16 mg/dL (8-24); CO2, Blood 32 mmol/L (21-32); Calcium, Blood 7.6 mg/dL (8.5-10.1); Chloride, Blood 111 mmol/L (98-108); Creatinine, Blood 0.53 mg/dL (0.60-1.20); Globulin, Blood 4.7 g/dL (2.2-4.0); Glomerular Filtration Rate >60 (60-); Glucose, Blood 186 mg/dL (70-99); Magnesium, Blood 2.2 mg/dL (1.6-2.4); Phosphorus, Blood 2.1 mg/dL (2.5-4.9); Potassium, Blood 5.1 mmol/L (3.5-5.5); Sodium, Blood 146 mmol/L (136-145); Total Protein, Blood 5.7 g/dL (6.4-8.2)
--- NOTE | 2018-08-18 04:32 | NUR ---
SHIFT ASSESSMENT NO ACUTE CHANGES NOTED T/O SHIFT. INCREASING LOC NOTED T/O SHIFT. PT CALM, COOPERATIVE, RESPONDS TO VERBAL STIMULI, SPONT OPENS EYES, TRACKING WITY EYES, NODDING HEAD Y/N TO MOST QUESTIONS, FOLLOWING COMMANDS (ABLE TO MOVE TOES AND DEPUTY OF COUNTER INTELLIGENCE ON COMMAND). PRECEDEX DRIP 0.7 MCG/KG/HR - CONT TO TITRATE TO EFFECT. PROPOFOL 30 MCG/KG/MIN - CONT TO TITRATE TO EFFECT. SENSATION ITNACT. PT DENIES N/T. PT LINARES. WEAKNESS MOVEMENT THIS AM. INCREASED WEAKNESS AND LESS MOVEMENT NOTED THIS PM. OCC FACIAL GRIMACING AND RESTLESSNESS NOTED, BUT PT DENIES PAIN/DISCOMFORT THIS AM. CONT FENT DRIP AT 50 MCG/HR. LUNGS COARSE, MIDDLE AND LOWER LOBES DIMINISHED. VENT SETTINGS: AC 16, TV 400, PEEP 10, FIO2 35%. OXY SAT >90%. RR 16 TO 30'S. SUCTION VIA ETT: SMALL AMOUTNS OF THICK WHITE/CLEAR SECRETIONS. TMAX 100.7 - ROOM TEMP DOWN, BLANKETS OFF, FAN ON, TYLENOL PRN. ST. HR 100'S TO 110'S. INCREASING BP NOTED WITH PT CARE. OTHERWISE BP STABLE - SEE VS FS. STRONG PULSES. WAMR, PINK SKIN. EDEMA NOTED. ACTIVE BT X4 QUADRANTS. ABD SOFT, NONTENDER, MOD DIST. OG IN PLACE. TF: PIVOT 1.5 AT GOAL RATE 45 ML/HR AND 150 ML FLUSH Q4 HR. RESIDUAL WNL. F/C - CLEAR, YELLOW URINE NOTED. PIV X1. PICC RUCHI. NS TKO AT 10 ML/HR. CHEST TUBE LEFT POSTERIOR WALL DRAINING TO GRAVITY - CLEAR, YELLOW TO THICK WHITE CLOUDY SECRETIONS. WILL CONT TO MONITOR PT AND WILL PROVIDE BEDSIDE REPORT TO ONCOMING NURSE THIS AM.
--- NOTE | 2018-08-18 04:59 | NUR ---
DR. ROSE CALLED DR. ROSE AT [facility] TIME. INFORMED DR. ROSE OF AM LABS. DR. ROSE DOES NOT WANT TO REPLACE PHOS THIS AM D/T HIGH SODIUM AND RISING POTASSIUM.
[2018-08-18 05:28] LABS: PCO2 Arterial 55.8 mmHg (35-45); PO2 Arterial 60.4 mmHg (80-100); pH Blood Arterial 7.38 (7.35-7.45)
--- NOTE | 2018-08-18 09:55 | NUR ---
RECEIVED REPORT AND ASSUMED CARE OF PATIENT. HE IS SITTING UP IN BED, VERY RESPONSIVE TO INTERACTIONS. NODDING YES/NO TO QUESTIONS AT THIS TIME. PROVIDED AM CARE AND REPOSITIONED PATIENT. HE CONTINUES TO BE SEDATED AND INTUBATED PROPFOL AT 30 MCG/KG/MIN, FENTYNAL AT 50 MCG/HR, AND PRECEDEX AT 0.7 MCG/KG/HR. PT APPEARS ANXIOUS, GAVE ATIVAN 1 MG. VENT SETTINGS AT 16/400/10/35%. LUNGS ARE VERY COARSE T/O, DIM B/L LOWER GEIGER.
--- NOTE | 2018-08-18 10:10 | NUR ---
DR. DESOUZA IN TO SEE PATIENT. DID NOT MAKE ANY CHANGES AT THIS TIME.
--- NOTE | 2018-08-18 12:42 | NUR ---
DR LOVE IN TO SEE PATIENT. ASSESSMENT OF PATIENT, DISCUSSED HOME B/P MEDICATION, SHE WOULD LIKE TO START AMLODIPINE 5 MG DAILY STARTING TODAY. ADDITIONALLY, SHE FLUSHED THE POST PIGTAIL CHEST DRAIN FOR PATENCY. DR ASKED PATIENT BE SWITCHED TO A BED THAT CAN PROVIDE CHEST PHYSIOTHERAPY. CHANGED BED AND STARTED THERAPY PER DOCTORS ORDERS.
--- NOTE | 2018-08-18 18:18 | NUR ---
SHIFT SUMMARY: PT CONTINUES TO BE SEDATED AND INTUBATED. PROPFOL RUNNING AT 40 MCG/KG/MIN, FENYTNAL AT 50 MCG/HR AND PRECEDEX AT 0.7 MCG/KG/HR. VENT SETTINGS ARE 16/400/10/35%, RR HAS BEEN BETWEEN 20'S-30'S THROUGHOUT THE SHIFT. CHEST PHYSIOTHERAPY BED IN PLACE TODAY, INCREASE IN COUGH REFLEX AND NEED FOR SUCTIONING. WHEN PT IS SUCTIONED, THICK MUCOUSY SECRETIONS, WHITE IN COLOR. FAMILY AT BEDSIDE OFF AND ON DURING SHIFT. EUBANKS CATH AND PIGTAIL CHEST TUBE BOTH DRAINING TO GRAVITY. CHEST TUBE FLUSHED FOR PATENCY BY DR. LOVE TODAY. OUTPUT IS SCANT AMOUNT OF MUCOUSY FLUID. WILL CONTINUE TO MONITOR AND GIVE REPORT TO SABRINA SERRANO.
--- NOTE | 2018-08-18 19:15 | NUR ---
ASSUMING CARE OF PT AT THIS TIME. PT REPORT RECEIVED AT BEDSIDE WITH OFFGOING NURSES, GLORIA RN AND ENEDINA RN. PT LAYING IN BED, INTUBATED AND SEDATED UPON ENTERING THE ROOM. VS STABLE - SEE VS FS. PT DOES NOT APPEAR TO BE IN DISTRESS AT THIS TIME. WILL REVIEW PLAN OF CARE.
--- NOTE | 2018-08-18 19:30 | NUR ---
ASSESSMENT PT CALM, COOPERATIVE, RESPONDS TO VERBAL STIMULI, SPONT OPENS EYES, TRACKIGN WITH EYES, NODDING HEAD Y/N TO MOST QUESTIONS, FOLLOWS COMMANDS (ABLE TO MOVE TOES AND DISTRIBUTOR OPERATOR ON COMMAND). PRECEDEX DRIP 0.7 MCG/KG/HR - WILL CONT TO TITRATE TO EFFECT. PROPOFOL DRIP 30 MCG/KG/MIN - WILL CONT TO TITRATE TO EFFECT. SENSATION INTACT. PT DENIES N/T. PT LINARES. INCREASES WEAKNESS AND LESS MOVEMENT NOTED THIS PM. OCC FACIAL GRIMACING. PT DENIES PAIN/DISCOMFORT. CONT FENT DRIP AT 50 MCG/HR. LUNGS COARSE, MIDDLE AND LOWER LOBES DIMINIHSED. VENT SETTINGS: AC 16, TV 400, PEEP 10, FIO2 35%. LAVON, RT DECREASED FIO2 TO 30%. OXY SAT >90%. RR 20'S. SUCTION VIA ETT: SMALL AMOUNTS OF THICK WHITE/CLEAR SECRETIONS. LARGE AMOUNTS OF THICK WHITE/CLEAR SECRETIONS POST BED CPT. TEMP 99.0 - ROOM TEMP DOWN, BLANKETS OFF, FAN ON. NSR. HR 90'S. BP STABLE - SEE VS FS. STRONG PULSES. WARM, PINK SKIN. INCREASED EDEMA NOTED. HYPERACTIVE BT X4 QUADRANTS. ABD SOFT, NONTENDER, MOD DIST. OG IN PLACE. TF: PIVOT 1.5 AT GOAL RATE 45 ML/HR AND 150 ML FLUSH Q4 HR. RESIDUAL 110. F/C - CLEAR YELLOW URINE NOTED. PIV X1. PICC RUCHI. NS TKO AT 10 ML/HR. CHEST TUBE LEFT POSTERIOR WALL DRAINING TO GRAVITY - CLEAR, YELLOW TO THICK WHITE CLOUDY SECRETIONS, MINIMAL OUTPUT.
[2018-08-19 03:28] LABS: BASOPHILS ABSOLUTE AUTO 0.05 K/mm3 (0.00-0.23); BASOPHILS PERCENT AUTO 0 % (0-2); EOSINOPHILS ABSOLUTE AUTO 0.34 K/mm3 (0.00-0.68); EOSINOPHILS PERCENT AUTO 2 % (0-6); Hematocrit 34.6 % (37.0-53.0); Hemoglobin 10.7 g/dL (13.5-17.5); IMMATURE GRAN ABSOLUTE AUTO 0.59 K/mm3 (0.00-0.10); IMMATURE GRAN PERCENT AUTO 3 % (0-1); LYMPHOCYTES ABSOLUTE AUTO 1.69 K/mm3 (0.84-5.20); LYMPHOCYTES PERCENT AUTO 10 % (21-46); MONOCYTES ABSOLUTE AUTO 0.94 K/mm3 (0.16-1.47); MONOCYTES PERCENT AUTO 5 % (4-13); Mean Corpuscular HGB 32.8 pg (26.0-34.0); Mean Corpuscular HGB Conc 30.9 g/dL (31.5-36.5); Mean Corpuscular Volume 106 fL (80-100); Mean Platelet Volume 10.9 fL (9.1-12.4); NEUTROPHILS ABSOLUTE AUTO 14.19 K/mm3 (1.96-9.15); NEUTROPHILS PERCENT AUTO 80 % (41-73); Platelet Count 412 K/mm3 (150-400); RDW Coefficient Variation 14.4 % (11.7-14.2); RDW Standard Deviation 56.8 fL (35.1-46.3); Red Blood Cell Count 3.26 M/mm3 (4.30-5.90)
[2018-08-19 03:46] LABS: Anion Gap 5 mmol/L (6-16); Blood Urea Nitrogen 15 mg/dL (8-24); CO2, Blood 33 mmol/L (21-32); Calcium, Blood 7.8 mg/dL (8.5-10.1); Chloride, Blood 111 mmol/L (98-108); Creatinine, Blood 0.56 mg/dL (0.60-1.20); Glomerular Filtration Rate >60 (60-); Glucose, Blood 137 mg/dL (70-99); Magnesium, Blood 2.1 mg/dL (1.6-2.4); Phosphorus, Blood 2.4 mg/dL (2.5-4.9); Potassium, Blood 4.5 mmol/L (3.5-5.5); Sodium, Blood 149 mmol/L (136-145)
--- NOTE | 2018-08-19 04:20 | NUR ---
DR. LOVE CALLED DR. LOVE AT THIS TIME. INFORMED DR. LOVE OF LABS. NO NEW ORDERS AT THIS TIME. DR. LOVE DOES NOT WANT TO REPLACE CHRISTIANO THIS AM.
--- NOTE | 2018-08-19 06:14 | NUR ---
SHIFT ASSESSMENT NO ACUTE CHANGES NOTED T/O SHIFT. OCC AGITATION AND RESTLESSNESS NOTED WITH PT CARE, ESPECIALLY WITH BED CPT AND ORAL CARE. OTHERWISE, PT CALM, COOPERATIVE, RESPONDS TO VERBAL STIMULI, SPONT OPENS EYES, TRACKING WITH EYES, NODDING HEAD Y/N TO QUESTIONS, FOLLOWS COMMADNS (ABLE TO MOVE TOES AND HEALTH INSURANCE SALES AGENT ON COMMAND). PRECEDEX 0.7 MCG/KG/HR - CONT TO TITRATE TO EFFECT. PROPOFOL DRIP 40 MCG/KG/MIN - CONT TO TITRATE TO EFFECT. PRN ATIVAN ADMINISTERED T/O SHIFT. SENSATION INTACT. PT DENIES N/T. PT LINARES. INCREASED WEAKNESS AND LESS MOVEMENT NOTED THIS PM. OCC FACIAL GRIMACING AND RESTLESSNESS. PT DENIES PAIN/DISCOMFORT. CONT FENT DRIP AT 50 MCG/HR. LUNGS COARSE, MIDDLE AND LOWER LOBES DIMINISHED. VENT SETTINGS: AC 16, TV 400, PEEP 10, FIO2 40%. CONT TO TITRATE FIO2 TO MAINTAIN SPO2 90% AND GREATER. RR 20'S TO 30'S. SUCTION VIA ETT: LARGE AMOUNTS OF THICK WHITE/CLEAR SECRETIONS POST BED CPT. TMAX 99.6 - ROOM TEMP DOWN, BLANKETS OFF, FAN ON. NSR TO ST. HR 70'S TO 110'S. BP STABLE (SEE VS FS). INCREASED HR, BP AND RR NOTED WITH AGITATION AND RESTLESSNESS. STRONG PULSES. WARM, PINK SKIN. INCREASED EDEMA NOTED THIS PM. HYPERACTIVE BT X4 QUADRANTS. ABD SOFT, NONTENDER, MOD DIST. OG IN PLACE. TF: PIVOT 1.5 AT GOAL RATE 45 ML/HR AND 150 ML FLUSH Q4 HR. RESIDUAL WNL. F/C - CLEAR YELLOW URIEN NOTED. PICC RUCHI. CHEST TUBE LEFT POSTERIOR WALL DRAINIGN TO GRAVITY - CLEAR YELLOW TO THICK WHITE CLOUDY SECRETIONS, MINIAL OUTPUT. WILL CONT TO MONITOR PT AND WILL PROVIDE BEDSIDE REPORT TO ONCOMING NURSE THIS AM.
--- NOTE | 2018-08-19 09:48 | NUR ---
0715-ASSUMED CARE OF PT. PT IS VENTED AND INTUBATED. PT IS SEDATED WITH PROPOFOL @ 45MCG/KG/HR. PRECEDEX DRIP @ 0.7MCG/KG/HR. PT HAS TUBE FEEDING GOING @ 45ML/HR WITH PIVOT 1.5. TOLERATING TUBE FEEDING WELL. NO RESIDUALS NOTED. PT OPENS EYES TO VOICE. NODDING/SHAKING HEAD TO YES/NO QUESTIONS. PT FOLLOWING COMMANDS AT TIMES. WEAK ICU TECH AND PEDAL PUSHES. MOVES ALL EXTREMETIES. SUCTIONED SECRETIONS PRN WITH COPIOUS AMOUNT OF SECRETIONS NOTED. 0940- NO CHANGES FROM INITIAL ASSESSMENT.
--- NOTE | 2018-08-19 13:00 | NUR ---
PT SEEN BY DR. PABLO. UPDATED HIM OF PT'S STATUS.
--- NOTE | 2018-08-19 14:41 | NUR ---
Requested permission from care, daughter in law granted permission for care 08/19/18.
--- NOTE | 2018-08-19 15:20 | NUR ---
ECHOCARDIOGRAM COMPLETE
--- NOTE | 2018-08-19 16:00 | NUR ---
ECHOCARDIOGRAM AT THIS TIME.
--- NOTE | 2018-08-19 17:55 | NUR ---
SHIFT SUMMARY: PT IS SEDATED STILL ON PROPOFOL @ 45MCG/KG/MIN. PRECEDEX @ 0.8MCG/KG/HR. FENTANYL DRIP @ 25MCG/HR. PT IS RECEIVING SCHEDULED DOSE OF ATIVAN PO. PT STILL OPENS EYES TO VOICE, GETS A RESTLESS SOMETIMES ESPECIALLY WITH BED CPT. MINIMAL DRAINAGE NOTED ON CHEST DRAIN. STILL WITH THICK ORAL AND ETT SECRETIONS.
--- NOTE | 2018-08-19 19:20 | NUR ---
ASUME CARE: REPORT RECIEVED FROM LAWSON SERRANO OFF GOING SHIFT. REMAINS INTUBATED SEDATED AND RESTRAINED. FAMILY AT BEDSIDE ATTENTIVE TO NEEDS/CARES. VENT SETTINGS AC 16, TV 400, FOO2 50%, PEEP 10, RATE 16-23, SPO2 93-97% LUNG SOUNDS COARSE T/O WITH DEDCREASED SOUNDS L BASES. 30ML TUBE FEEDING RESIDUAL REFED WITH ORAL CARE. THICK WHITE SPUTUM SX PER ETT LG AMOUNT. ABDOMEN SOFT WITH BOWEL SOUNDS FOUR QUADS.EUBANKS PATENT DRAINING CAREN URINE.GENERALIZED DEPENDENT EDEMA ESPECIALLY TO EXTREMITIES. EXTREMITIES ELEVATED ON PILLOWS. PEDAL PULSES PRESENT. DRESSING TO COCCYX DRY INTACT. REMAINS IN SOFT WRIST RESTRAINTS TO PREVENT INADVERTENT REMOVAL OF LINES/TUBES. CONTINUE TO MONITOR AND REPORT CHANGE IN PATIENT CONDITION
[2018-08-20 03:52] LABS: BASOPHILS ABSOLUTE AUTO 0.02 K/mm3 (0.00-0.23); BASOPHILS PERCENT AUTO 0 % (0-2); EOSINOPHILS ABSOLUTE AUTO 0.18 K/mm3 (0.00-0.68); EOSINOPHILS PERCENT AUTO 1 % (0-6); Hematocrit 32.3 % (37.0-53.0); Hemoglobin 10.2 g/dL (13.5-17.5); IMMATURE GRAN ABSOLUTE AUTO 0.21 K/mm3 (0.00-0.10); IMMATURE GRAN PERCENT AUTO 2 % (0-1); LYMPHOCYTES ABSOLUTE AUTO 1.27 K/mm3 (0.84-5.20); LYMPHOCYTES PERCENT AUTO 9 % (21-46); MONOCYTES ABSOLUTE AUTO 0.77 K/mm3 (0.16-1.47); MONOCYTES PERCENT AUTO 6 % (4-13); Mean Corpuscular HGB 33.1 pg (26.0-34.0); Mean Corpuscular HGB Conc 31.6 g/dL (31.5-36.5); Mean Corpuscular Volume 105 fL (80-100); Mean Platelet Volume 11.5 fL (9.1-12.4); NEUTROPHILS ABSOLUTE AUTO 11.03 K/mm3 (1.96-9.15); NEUTROPHILS PERCENT AUTO 82 % (41-73); Platelet Count 365 K/mm3 (150-400); RDW Coefficient Variation 14.4 % (11.7-14.2); RDW Standard Deviation 55.6 fL (35.1-46.3); Red Blood Cell Count 3.08 M/mm3 (4.30-5.90); White Blood Cell Count 13.48 K/mm3 (4.00-11.30)
[2018-08-20 04:08] LABS: Anion Gap 5 mmol/L (6-16); Blood Urea Nitrogen 15 mg/dL (8-24); Bun/Creatinine Ratio 27.1 (12.0-20.0); CO2, Blood 32 mmol/L (21-32); Calcium, Blood 7.2 mg/dL (8.5-10.1); Chloride, Blood 110 mmol/L (98-108); Creatinine, Blood 0.55 mg/dL (0.60-1.20); Glomerular Filtration Rate >60 (60-); Glucose, Blood 170 mg/dL (70-99); Phosphorus, Blood 3.1 mg/dL (2.5-4.9); Potassium, Blood 4.2 mmol/L (3.5-5.5); Sodium, Blood 147 mmol/L (136-145)
--- NOTE | 2018-08-20 06:44 | NUR ---
SHIFT SUMMARY REMAINS INTUBATED SEDATED AND RESTRAINED. VENT SETTINGS AC 16, TV 400, FIO2 50% PEEP 10, RATE 24-30'S. SPO2 92-96%. LUNG SOUNDS COARSE T/O WITH COARSE DECREASED BASES. CHEST DRAIN INTACT WITH SCANT AMT DRAINAGE. TF INFUSING PIVOT 1.5 AT 45ML/HR PER GOAL. THUCJ WHITE SPUTUM SX WITH ORAL CARE PER ETT. ALSO COPIOUS AMT ORAL SECRETIONS. ABDOMEN SOFT WITH BOWEL SOUNDS FOUR QUADS. EUBANKS TEMP PROBE PATENT DRAINING CAREN URINE. DRESSING DRY INTACT TO COCCYX. GENERALIZED DEPENDENT EDEMA ESPECIALLY TO EXTREMITIES. EXTREMITIES EVLEVATED ON PILLOWS. PEDAL PULSES PRESENT. CONTINUE WITH SOFT WRIST RESTRAINTS TO PREVENT INADVERTENT REMOVAL OF LINES/TUBES. CONTINUE TO MONITOR AND REPORT CHANGE IN PATIENT CONDITION. OCC OPENS EYES TO VERBAL STIMULI. DOEW NOT FOLLOW DIRECTIONS WILL NOD/SHAKE HEAD TO SIMPLE YES/NO QUESTIONS HOWEVER NOT CONSISTENTLY. FENTAYL GTT CHECKED WITH CHUY SERRANO AND 2MCG WASTED.
--- NOTE | 2018-08-20 10:15 | NUR ---
PT MINIMALLY RESPONSIVE. OPENS EYES TO TOUCH AND VOICE AT TIMES, UNABLE TO FOLLOW DIRECTIONS, GROSS EXT MOVEMENT, NO GAG. WILL SLOWLY LIGHTEN SEDATION TOLERATED. WILL GIVE SED VAC THIS AM. LOW GRADE TEMP AT 100.2. BLNKETS REMOVED, FAN PLACED. WILL GIVEN TYLENOL IF TEMP PERSIST. SEE FLOW SHEET FOR IV GTTS. PIGTAIL CHEST TUBE TO LEFT MID BACK DRAINING SMALL AMT OF PURULENT DRAINAGE. NO CREPITUS, CRACKLES TO LEFT LOBE. PT ABD SEVERELY DISTENDED WITH TYMPANIC BT'S T/O. 230 TF RESIDUAL REFED, TF HELD, DR NOTIFIED. REGLAN MAY BE STARTED. SUPP GIVEN, PT DID HAVE SMALL SMEAR CLEANED WITH TURN. DR PABLO IN TO SEE PT THIS AM. PT MAY BE TRANSFERED IF VAT IS REQUIRED.
--- NOTE | 2018-08-20 15:03 | NUR ---
PT PASSING LARGE AMTS OF BROWN LIQUID STOOL, FLEXISEAL PLACED, MINIMAL LEAKING. 5CC RESIDUAL FROM OG AT 1200, TF RESUMED. PRECEDEX DECREASED TO 0.7MCG. COPIOUS AMTS OF THICK CREAM SPUTUM FROM ETT, COPIOUS AMT OF ORAL SECRETIONS SX'D. SISTER AT BEDSIDE, UPDATE GIVEN.
--- NOTE | 2018-08-20 15:18 | NUR ---
Initial Visit: Palliative Care Consult for Advanced Care Planning, AD/POLST. Pt is sedated and vented. He appears comfortable. Pt's sister present and engaged in therapeutic conversation. Pt's sister lives in [place] and flew in today. Listened as she expressed anxieties over Pt's condition and recent of her Grand mother. She reports the Pt does not have any religous or spiritual beliefs and states the last time druze was spoken with Pt he was extremely sceptical. Pt's sister reports no questions or concerns at this time. Spoke with Pt's son Manjit and daughter in law Gita on the phone. Discussed goals of care and AD/POLST. Gita reports they plan on having Pt move in with them and they will help with needs the Pt may have. They will consider bringing in outside caregivers if needed. They will consider completing POLST or AD when Pt is more stable and discussion can be made with Pt. Gita and Manjit requests that nurses contact them with any significant change in status of Pt. Plan is to help with completing of POLST/AD when family is ready. Will remain available.
--- NOTE | 2018-08-20 19:00 | NUR ---
ASSUMED CARE ASSUMED CARE OF PATIENT AT THIS TIME. REMAINS INTUBATED AC 16, TV 400, PEEP 10, FIO2 50%. RESP RATE 25-30. LEFT POSTERIOR PIGTAIL DRAIN INTACT AND DRAINING TO GRAVITY- PURULENT DRAINAGE NOTED. NO CREPITUS NOTED. SEDATED WITH PRECEDEX @ 0.7MCG/KG/HR, PROPOFOL @ 45MCG/KG/MIN, AND FENTANYL GTT 50MCG/HR. PT OPENS EYES SLIGHTLY TO NOXIOUS STIMULI. MINIMAL GROSS MOTOR MOVEMENT NOTED IN BLE. NO GAG REFLEX NOTED. COUGH REFLEX NOTED. FAIZA, 3MM. BILATERAL SOFT WRIST RESTRAINTS IN PLACE TO PREVENT SELF-EXTUBATION. MONITOR SHOWS NSR, RATE 90s. BP STABLE. TEMP 100.0F VIA EUBANKS TEMP PROBE. OG WITH PIVOT 1.5 INFUSING @ GOAL RATE OF 45CC/HR. 150CC H20 FLUSH Q4H PER ORDER. EUBANKS PATENT AND DRAINING TO GRAVITY. RECTAL TUBE WITH LIQUID BROWN STOOL. SEE SHIFT ASSESSMENT FOR FULL ASSESSMENT.
--- NOTE | 2018-08-20 19:20 | NUR ---
FENTANYL PUMP CLEARED AT END OF SHIFT; 307CC WITNESSED BY CANDELARIA Huff RN PT TAKEN TO CT SCAN. FIO2 INCREASED UP TO 50% AT 1800 D/T SATS 87-89%.
--- NOTE | 2018-08-20 21:45 | NUR ---
TRANSFER UPDATE RECEIVED BED ASSIGNMENT FROM [facility] AT 2018. SISTER AT BEDSIDE AND IS AWARE OF TRANSFER PLAN. CALL PLACED TO [facility] TO INFORM OF PLAN TO TRANSFER TONIGHT.
--- NOTE | 2018-08-20 23:00 | NUR ---
FENTANYL GTT FENTANYL GTT STOPPED PRIOR TO TRANSFER. WASTED 188CC TOTAL WITH FAYE RAO RN AT THIS TIME.
--- NOTE | 2018-08-20 23:00 | NUR ---
TRANSFER TO [facility] PT TRANSFERRED AT THIS TIME TO [facility], ROOM 4109 VIA [facility]. RT WITH PATIENT. PRECEDEX CONTINUES @ 0.7MCG/KG/HR AND PROPOFOL @ 45MCG/KG/MIN FOR TRANSFER. OG CLAMPED. RECTAL TUBE AND EUBANKS CATHETER IN PLACE. LEFT POSTERIOR PIGTAIL CHEST TUBE TO GRAVITY. REPORT GIVEN TO MAGGIE DAVIS @ 2200.
== END 2018-08-20 23:00 | disposition short-term general hospital (02) | DRG 870 ==
LOC: ER 09:19 → ICUW 13:04 → ICUE 13:04 → ICUW 14:50
PROVIDERS: Emergency Medicine; Internal Medicine Critical Care Medicine; Internal Medicine Pulmonary Disease; ADMIT Hospitalist
PROC: 0W9B30Z Drainage of Left Pleural Cavity with Drainage Device, Percutaneous Approach (ICD-10-PCS; 2018-08-13)
PROC: 5A1955Z Respiratory Ventilation, Greater than 96 Consecutive Hours (ICD-10-PCS; 2018-08-13)
PROC: 0BH17EZ Insertion of Endotracheal Airway into Trachea, Via Natural or Artificial Opening (ICD-10-PCS; 2018-08-13)
PROC: 0B9F8ZX Drainage of Right Lower Lung Lobe, Via Natural or Artificial Opening Endoscopic, Diagnostic (ICD-10-PCS; principal; 2018-08-16)
DX: A41.9 Sepsis, unspecified organism (principal); J96.01 Acute respiratory failure with hypoxia; R65.21 Severe sepsis with septic shock; J86.9 Pyothorax without fistula; J69.0 Pneumonitis due to inhalation of food and vomit; F10.239 Alcohol dependence with withdrawal, unspecified; E87.1 Hypo-osmolality and hyponatremia; G93.40 Encephalopathy, unspecified; E87.0 Hyperosmolality and hypernatremia; I10 Essential (primary) hypertension; E87.6 Hypokalemia; R73.9 Hyperglycemia, unspecified; K76.0 Fatty (change of) liver, not elsewhere classified; F17.210 Nicotine dependence, cigarettes, uncomplicated; K59.00 Constipation, unspecified
CPT/HCPCS: 31500; 31720; 36415; 36569; 36600; 49405; 51702; 71045; 71260; 80047; 80048; 80053; 80069; 80202; 81001; 82042; 82330; 82803; 82945; 82947; 83036; 83605; 83615; 83735; 83880; 83986; 84100; 84132; 84157; 84484; 85014; 85025; 85060; 85610; 85730; 87040; 87070; 87075; 87076; 87077; 87086; 87102; 87184; 87185; 87186; 87205; 87804; 88108; 89051; 93005; 93010; 93306; 94002; 94003; 94640; 94644; 96361; 96374; 96375; 96376; 99291-25; 99292; C1751; C9113; J0330; J0610; J1650; J1815; J1956; J2060; J2250; J2543; J2765; J2930; J3010; J3370; J3411; J3475; J3480; J7030; J7040; J7042; J7050; J7060; J7120; P9041; Q9967

== ENCOUNTER 2018-12-16 07:15 | Observation (INO) | payer MEDICARE, OTHER ==
[~2018-12-16] VITALS: Ht 182.9 cm; Wt 88.8 kg
[~2018-12-16 07:15] MED LIST changes: +AMLO5 PO
[2018-12-16 08:02] LABS: BASOPHILS ABSOLUTE AUTO 0.02 K/mm3 (0.00-0.23); BASOPHILS PERCENT AUTO 0 % (0-2); EOSINOPHILS PERCENT AUTO 0 % (0-6); Hematocrit 51.1 % (37.0-53.0); Hemoglobin 17.9 g/dL (13.5-17.5); IMMATURE GRAN ABSOLUTE AUTO 0.07 K/mm3 (0.00-0.10); IMMATURE GRAN PERCENT AUTO 1 % (0-1); LYMPHOCYTES ABSOLUTE AUTO 1.39 K/mm3 (0.84-5.20); LYMPHOCYTES PERCENT AUTO 9 % (21-46); MONOCYTES ABSOLUTE AUTO 0.93 K/mm3 (0.16-1.47); MONOCYTES PERCENT AUTO 6 % (4-13); Mean Corpuscular HGB 32.3 pg (26.0-34.0); Mean Corpuscular Volume 92 fL (80-100); Mean Platelet Volume 10.7 fL (9.1-12.4); NEUTROPHILS ABSOLUTE AUTO 12.79 K/mm3 (1.96-9.15); NEUTROPHILS PERCENT AUTO 84 % (41-73); Platelet Count 188 K/mm3 (150-400); RDW Coefficient Variation 14.3 % (11.7-14.2); RDW Standard Deviation 48.4 fL (35.1-46.3); Red Blood Cell Count 5.54 M/mm3 (4.30-5.90)
[2018-12-16 08:29] LABS: Alanine Aminotransfer (ALT/SGP 41 U/L (12-78); Albumin, Blood 3.7 g/dL (3.4-5.0); Albumin/Globulin Ratio 0.9 (0.8-1.8); Alk Phos 107 U/L (50-136); Anion Gap 13 mmol/L (6-16); Aspartate Aminotrans (AST/SGOT 69 U/L (12-37); Bilirubin, Total 2.6 mg/dL (0.1-1.0); Blood Urea Nitrogen 46 mg/dL (8-24); Bun/Creatinine Ratio 19.7 (12.0-20.0); CO2, Blood 21 mmol/L (21-32); Calcium, Blood 8.9 mg/dL (8.5-10.1); Chloride, Blood 96 mmol/L (98-108); Creatinine, Blood 2.33 mg/dL (0.60-1.20); Ethanol (Alcohol), Blood, Med <3 mg/dL; Globulin, Blood 4.2 g/dL (2.2-4.0); Glomerular Filtration Rate 31 (60-); Glucose, Blood 107 mg/dL (70-99); Potassium, Blood 3.7 mmol/L (3.5-5.5); Sodium, Blood 130 mmol/L (136-145); Total Protein, Blood 7.9 g/dL (6.4-8.2)
[2018-12-16 09:41] LABS: Creatine Kinase MB 12.2 ng/mL (0.0-3.6); Creatine Kinase MB Index 0.9 (0.0-4.0)
--- NOTE | 2018-12-16 12:08 | NUR ---
ADMIT NOTE REPORT RECEIVED FROM ELINA SERRANO. PT ARRIVED VIA GURNEY ACCOMPANIED BY RN AND SUPERVISOR POWDERED SUGAR. PT AROUSABLE. SPEACH SLURRED. ANY MOVEMENT AND HE SHAKES SEVERILY. SLID TO NEW BWED WITH SLIDER SHEET. PT TOLERATED WELL. NO AGGITATION. PT ALLOWED VS TO BE TAKEN. ROOM WAS MADE DARK BY HIS REQUEST. HOB 30 DEGREES. BED ALARM ON. AWAITING IVF FROM PHARMACY. CONTINUE POT.
--- NOTE | 2018-12-16 13:28 | NUR ---
CISAMARA 9 PT RESTING QUIETLY IN A DARK ROOM. AWAKENS TO TOUCH. SPEACH GARBLED AND BARELY UNDERSTANDABLE. HE DID ASK FOR A BALNKET. MEDICATED WITH ATIVAN WHEN CIWA WAS 14. IVF INFUSING. BED ALARM ON. 4 RAILS UP. CALL LIGHT AND URINAL IN REACH. CONTINUE POT.
--- NOTE | 2018-12-16 17:40 | NUR ---
PT POA MET PT POA. PAPERS COPIED. POA IS ROBERTO CARLOS [place]. CONSENT FOR RELEASE OF INFORMATION OBTAINED FROM POA. ROBERTO CARLOS IS ASKING TO START THE PROCESS FOR PT BEING EVALUATED A NON-COMPETENT AND OBTAIN A STATE GUARDIAN FOR PT. PT HAS BEEN LIVING IN A MOTEL SINCE D/C FROM [facility]. HE HAD BEEN CLEAN AND SOBER UNTIL SUNDAY WHEN HE WENT AWOL FROM THE HOTEL. CONTINUE POT.
[2018-12-17 03:04] LABS: U Amphetamine Screen DETECTED; U Barbituate Screen Not Detected; U Benzodiazapine Screen DETECTED; U Cannabinoids Screen Not Detected; U Cocaine Screen Not Detected; U Methadone Screen Not Detected; U Methamphetamine Screen DETECTED; U Opiates Screen Not Detected; U Phencyclidine Screen Not Detected
[2018-12-17 03:05] LABS: U Buprenorphine Screen Not Detected; U Oxycodone Screen Not Detected; U Propoxyphene Screen Not Detected
[2018-12-17 04:09] LABS: BASOPHILS ABSOLUTE AUTO 0.02 K/mm3 (0.00-0.23); BASOPHILS PERCENT AUTO 0 % (0-2); EOSINOPHILS ABSOLUTE AUTO 0.06 K/mm3 (0.00-0.68); EOSINOPHILS PERCENT AUTO 1 % (0-6); Hematocrit 45.3 % (37.0-53.0); Hemoglobin 15.4 g/dL (13.5-17.5); IMMATURE GRAN ABSOLUTE AUTO 0.02 K/mm3 (0.00-0.10); IMMATURE GRAN PERCENT AUTO 0 % (0-1); LYMPHOCYTES ABSOLUTE AUTO 1.98 K/mm3 (0.84-5.20); LYMPHOCYTES PERCENT AUTO 23 % (21-46); MONOCYTES ABSOLUTE AUTO 0.69 K/mm3 (0.16-1.47); MONOCYTES PERCENT AUTO 8 % (4-13); Mean Corpuscular Volume 94 fL (80-100); Mean Platelet Volume 10.7 fL (9.1-12.4); NEUTROPHILS ABSOLUTE AUTO 5.69 K/mm3 (1.96-9.15); NEUTROPHILS PERCENT AUTO 67 % (41-73); Platelet Count 149 K/mm3 (150-400); RDW Standard Deviation 48.9 fL (35.1-46.3); Red Blood Cell Count 4.81 M/mm3 (4.30-5.90); White Blood Cell Count 8.46 K/mm3 (4.00-11.30)
[2018-12-17 04:26] LABS: Anion Gap 8 mmol/L (6-16); Blood Urea Nitrogen 24 mg/dL (8-24); Bun/Creatinine Ratio 28.3 (12.0-20.0); CO2, Blood 27 mmol/L (21-32); Calcium, Blood 8.4 mg/dL (8.5-10.1); Chloride, Blood 102 mmol/L (98-108); Creatinine, Blood 0.85 mg/dL (0.60-1.20); Glomerular Filtration Rate >60 (60-); Glucose, Blood 92 mg/dL (70-99); Magnesium, Blood 2.2 mg/dL (1.6-2.4); Phosphorus, Blood 2.8 mg/dL (2.5-4.9); Sodium, Blood 137 mmol/L (136-145)
--- NOTE | 2018-12-17 05:21 | NUR ---
END OF SHIFT SUMMARY ASSUMED CARE OF PT @1900. PT TALKING WITH STAFF, SPEECH GARBLED, AT TIMES APPROPRIATE TO CONVERSATION, OTHER TIMES SPEECH DOES NOT MAKE SENSE IN CONTEXT. CIWA'S HAVE RANGED FROM 0 (SLEEPING) AVERAGED AROUND 9, AND AT TIMES A 12. PT HAS ORDEER FOR 1-4MG ATIVAN Q2 PRN. PT HAS BEEN MEDICATED WITH A TOTAL OF 8MG ATIVAN THIS SHIFT AND WILL MORE THAN LIKELY RECEIVE ANOTHER 2 MG ATIVAN BEFORE SHIFT CHANGE. PT HAS NOT HAD A SEIZURE. PT HAS BEEN TAKING OFF SPO2 SENSOR/TELE STICKERSD ALL NIGHT BUT HAS BEE REDIRECTABLE. PT HAS BEEN VERY COOPERATIVE WITH STAFF AND CARE AND HAS THANKED THIS NURSE MULTIPLE TIMES FOR TAKING CARE OF HIM AND "PUTTING UP WITH HIM". PT'S HR HAS REMAINED SR IN THE 80'S. PT DENIES HAVING AUDIROTY HALLUCONATIONS BUT WILL THEN MAKE COMMENTS ABOUT CERTAIN SOUNDS/VOICES THAT THIS NURSE HAS NOT HEARD. PT ASKS ABOUT THE CHILDREN PLAYING "OUTSIDE OF HIS ROOM". PT HAS REMAINED IN BED/RESTING FOR MAJORITY OF SHIFT. PT DOES NOT USE CALL LIGHT APPROPRIATELY AND HAS SET BED ALARAM OFF MULTIPLE TIMES. GENERALLY THESE OCCASIONS ARE BECAUSE PT IS WANTING TO CHANGE CLOTHES OR REPOSITION BLANKETS. URINE TOX SCREEN COLLECTED PER LAB REQUEST THAT WAS NEVER COMPLETED. +METH, BZO's, AMP. PT APPEARS TO BE DETOXING WELL WITH ASSISTANCE OF ATIVAN IV WITH NO SEVERE SYMPTOMS THIS SHIFT. PT FINISHED LITER OF LR X 1 BAG ORDERED. WILL CONTINUE TO MONITOR PT UNTIL SHIFT CHANGE. CALL LIGHT WITHIN REACH AND BED PLACED AT LOWET LEVEL WITH BED ALARM ACTIVATED.
--- NOTE | 2018-12-17 07:45 | NUR ---
AM ASSESSMENT: Pt resting in bed with bed alarm on. Pt disoriented to date, place and situation. CIWA of an 8 at this time. Will treat per orders. LS diminished. HR reg. BT positive. Pulses palp. Pt has garbaled speech, but this is his baseline. VSS. Pt follows directions but seems forgetful at times. Will continue to monitor for S/S of withdrawls and treat per orders.
[2018-12-17 11:09] LABS: Source, Urine Clean Catch
[2018-12-17 11:14] LABS: Bilirubin, Urine Neg (Neg); Blood, Urine 4+ (Neg); Glucose Qualitative, Urine 1+ (Neg); Ketones, Urine Neg (Neg); Leukocyte Esterase, Urine Neg (Neg); Nitrite, Urine Neg (Neg); Protein, Urine Neg (Neg); Specific Gravity, Urine 1.005 (1.003-1.022); Urobilinogen, Urine NORM (Normal)
--- NOTE | 2018-12-17 11:25 | NUR ---
update: Pt attempting to get out of bed. States "I need to go have a smoke." Pt then states that he is going to go outside without pants on to scare someone into giving him a cigarette. New order for Nicotine patch obtained and orders for librium. Pt has CIWA of 14 at this time. Will treat per orders. Bed alarm on and call light in reach.
[2018-12-17 11:47] LABS: Appearance, Urine Hazy (Clear); Color, Urine Yellow (P-Yellow)
[2018-12-17 11:50] LABS: Red Blood Cells, Urine 25-50 /hpf (0-2); White Blood Cells, Urine 0-2 /hpf (0-5)
[2018-12-17 11:51] LABS: Bacteria Rare /hpf; Squamous Epithelial Cells Rare /hpf (Few)
--- NOTE | 2018-12-17 17:10 | NUR ---
update: Pt dozing on and off. Has had visitors in room from POA and [id number]. Pt CIWA still about an 8. VSS. Bed alarm on. No other changes at this time. Will monitor.
--- NOTE | 2018-12-17 18:34 | NUR ---
SHIFT SUMMARY: Pt dozing on and off at this time. Has remained disoriented to situation, and has continued to have visual hallucinations this shift. CIWA has remained 8-14. Treated per orders. Pt speech does seem to be more clear since librium was started. VSS throughout shift. Has had 2 large BM's. Bed alarm has remained on and pt has yet to call for assistance, but does set off the bed alarm. Gait is unsteady and has been. Will report to night RN.
--- NOTE | 2018-12-18 05:22 | NUR ---
SHIFT SUMMARY PT TRANSFERRED FROM PCU. PT ALERT AND ORIENTED X 2. HAS BEEN PLEASANT AND COOPERATIVE. PT CIWA'S BETWEEN 5 AND 7. PT HAS REQUESTED MULTIPLE SNACKS T/O THE NIGHT. NO ACUTE EVENTS NOTED. PT UNSTEADY ON FEET, AO1 PERSON NEEDED. HAS BEEN USING URINAL AT BEDSIDE. WILL CONTINUE TO MONITOR.
[2018-12-18 10:20] LABS: BASOPHILS ABSOLUTE AUTO 0.02 K/mm3 (0.00-0.23); BASOPHILS PERCENT AUTO 0 % (0-2); EOSINOPHILS ABSOLUTE AUTO 0.08 K/mm3 (0.00-0.68); EOSINOPHILS PERCENT AUTO 1 % (0-6); Hematocrit 45.3 % (37.0-53.0); Hemoglobin 15.2 g/dL (13.5-17.5); IMMATURE GRAN ABSOLUTE AUTO 0.03 K/mm3 (0.00-0.10); IMMATURE GRAN PERCENT AUTO 0 % (0-1); LYMPHOCYTES ABSOLUTE AUTO 2.38 K/mm3 (0.84-5.20); LYMPHOCYTES PERCENT AUTO 31 % (21-46); MONOCYTES ABSOLUTE AUTO 0.78 K/mm3 (0.16-1.47); MONOCYTES PERCENT AUTO 10 % (4-13); Mean Corpuscular HGB 32.3 pg (26.0-34.0); Mean Corpuscular HGB Conc 33.6 g/dL (31.5-36.5); Mean Corpuscular Volume 96 fL (80-100); Mean Platelet Volume 10.9 fL (9.1-12.4); NEUTROPHILS ABSOLUTE AUTO 4.49 K/mm3 (1.96-9.15); NEUTROPHILS PERCENT AUTO 58 % (41-73); Platelet Count 172 K/mm3 (150-400); RDW Coefficient Variation 13.9 % (11.7-14.2); RDW Standard Deviation 49.8 fL (35.1-46.3); Red Blood Cell Count 4.71 M/mm3 (4.30-5.90); White Blood Cell Count 7.78 K/mm3 (4.00-11.30)
[2018-12-18 10:30] LABS: Anion Gap 8 mmol/L (6-16); Blood Urea Nitrogen 13 mg/dL (8-24); Bun/Creatinine Ratio 17.3 (12.0-20.0); CO2, Blood 25 mmol/L (21-32); Calcium, Blood 8.5 mg/dL (8.5-10.1); Chloride, Blood 107 mmol/L (98-108); Creatinine, Blood 0.75 mg/dL (0.60-1.20); Glomerular Filtration Rate >60 (60-); Glucose, Blood 91 mg/dL (70-99); Phosphorus, Blood 2.4 mg/dL (2.5-4.9); Potassium, Blood 4.2 mmol/L (3.5-5.5); Sodium, Blood 140 mmol/L (136-145)
[2018-12-18] MEDS ORDERED: NICO21TP TOP (15:13)
[2018-12-18] MEDS ORDERED: THERA1 EACH PO (15:14)
[2018-12-18] MEDS ORDERED: CHLO10 PO (15:15)
--- NOTE | 2018-12-18 17:30 | NUR ---
PT. DISCHARGED HOME WITH [facility], WENT OVER DISCHARGE ORDERS WITH LUANA AUSTIN AND GAVE HIM THE PACKET. PT. LEFT WITH [facility], INSTRUCTED PT. TO CHECK AT THE RETIREMENT FOR HIS BELONGINGS THEY USUALLY KEEP THEM UNTIL PT STABILIZES AND COMES BACK TO PICK THEM UP PER SS WORKER ENEDINA BREWER.
== END 2018-12-18 17:38 | disposition home or self-care (01) ==
LOC: ER 07:15 → PCU 07:16 → MEDS 11:35 → PCU 12:00 → MEDS 12-17 22:30 → ENPENDDIS 12-18 14:05 → MEDS 12-18 17:38
PROVIDERS: Emergency Medicine; Internal Medicine; ADMIT Internal Medicine
DX: N17.9 Acute kidney failure, unspecified (principal); F10.239 Alcohol dependence with withdrawal, unspecified; E87.6 Hypokalemia; F15.10 Other stimulant abuse, uncomplicated; J96.01 Acute respiratory failure with hypoxia; I10 Essential (primary) hypertension; F17.210 Nicotine dependence, cigarettes, uncomplicated; Y90.0 Blood alcohol level of less than 20 mg/100 ml; Z79.899 Other long term (current) drug therapy; W19.XXXA Unspecified fall, initial encounter; R09.02 Hypoxemia
CPT/HCPCS: 36415; 70450; 80048; 80053; 81001; 82550; 82553; 83735; 84100; 85025; 94762; 96361; 96365; 96372; 96375; 96376; 97161; 97530; 99285-25; C9113; G0378; G0480; J1650; J2060; J2405; J3411; J3475; J3480; J7030; J7042; J7120

== ENCOUNTER 2019-01-27 15:58 | Emergency (ER) | payer MEDICARE, OTHER ==
[~2019-01-27] VITALS: Ht 182.9 cm; Wt 95.2 kg
[~2019-01-27 15:58] MED LIST changes: +CHLO10 PO; +NICO21TP TOP; +THERA1 EACH PO
[2019-01-27 16:42] LABS: BASOPHILS ABSOLUTE AUTO 0.04 K/mm3 (0.00-0.23); BASOPHILS PERCENT AUTO 0 % (0-2); EOSINOPHILS ABSOLUTE AUTO 0.07 K/mm3 (0.00-0.68); EOSINOPHILS PERCENT AUTO 1 % (0-6); Hematocrit 43.2 % (37.0-53.0); Hemoglobin 15.3 g/dL (13.5-17.5); IMMATURE GRAN ABSOLUTE AUTO 0.03 K/mm3 (0.00-0.10); IMMATURE GRAN PERCENT AUTO 0 % (0-1); LYMPHOCYTES ABSOLUTE AUTO 2.83 K/mm3 (0.84-5.20); LYMPHOCYTES PERCENT AUTO 29 % (21-46); MONOCYTES ABSOLUTE AUTO 0.67 K/mm3 (0.16-1.47); MONOCYTES PERCENT AUTO 7 % (4-13); Mean Corpuscular HGB 32.6 pg (26.0-34.0); Mean Corpuscular HGB Conc 35.4 g/dL (31.5-36.5); Mean Corpuscular Volume 92 fL (80-100); Mean Platelet Volume 10.5 fL (9.1-12.4); NEUTROPHILS ABSOLUTE AUTO 6.23 K/mm3 (1.96-9.15); NEUTROPHILS PERCENT AUTO 63 % (41-73); Platelet Count 276 K/mm3 (150-400); RDW Coefficient Variation 13.9 % (11.7-14.2); RDW Standard Deviation 47.5 fL (35.1-46.3); Red Blood Cell Count 4.69 M/mm3 (4.30-5.90); White Blood Cell Count 9.87 K/mm3 (4.00-11.30)
[2019-01-27 17:42] LABS: Alanine Aminotransfer (ALT/SGP 19 U/L (12-78); Albumin, Blood 3.9 g/dL (3.4-5.0); Albumin/Globulin Ratio 1.1 (0.8-1.8); Alk Phos 91 U/L (50-136); Anion Gap 13 mmol/L (6-16); Aspartate Aminotrans (AST/SGOT 16 U/L (12-37); Bilirubin, Total 1.5 mg/dL (0.1-1.0); Blood Urea Nitrogen 5 mg/dL (8-24); Bun/Creatinine Ratio 6.6 (12.0-20.0); CO2, Blood 19 mmol/L (21-32); Calcium, Blood 9.3 mg/dL (8.5-10.1); Chloride, Blood 104 mmol/L (98-108); Creatinine, Blood 0.76 mg/dL (0.60-1.20); Globulin, Blood 3.7 g/dL (2.2-4.0); Glomerular Filtration Rate >60 (60-); Glucose, Blood 111 mg/dL (70-99); Potassium, Blood 3.2 mmol/L (3.5-5.5); Sodium, Blood 136 mmol/L (136-145); Total Protein, Blood 7.6 g/dL (6.4-8.2); Troponin I <0.015 ng/mL (0.000-0.040)
[2019-01-27] MEDS ORDERED: CHLO25 PO (18:07)
== END 2019-01-27 18:26 | disposition home or self-care (01) ==
LOC: ER 15:58
PROVIDERS: Physician Assistant
DX: F10.239 Alcohol dependence with withdrawal, unspecified (principal); E87.6 Hypokalemia; Y90.0 Blood alcohol level of less than 20 mg/100 ml; R09.1 Pleurisy; Z79.899 Other long term (current) drug therapy; I10 Essential (primary) hypertension; F17.200 Nicotine dependence, unspecified, uncomplicated
CPT/HCPCS: 36415; 71046; 80053; 82140; 83690; 84484; 85025; 93005; 93010; 96374; 99284-25; G0480; J1885

== ENCOUNTER 2019-03-21 16:07 | Emergency (ER) | payer MEDICARE, OTHER ==
[~2019-03-21] VITALS: Ht 182.9 cm; Wt 95.2 kg
[~2019-03-21 16:07] MED LIST changes: +CHLO25 PO
[2019-03-21 16:50] LABS: BASOPHILS ABSOLUTE AUTO 0.03 K/mm3 (0.00-0.23); BASOPHILS PERCENT AUTO 0 % (0-2); EOSINOPHILS ABSOLUTE AUTO 0.01 K/mm3 (0.00-0.68); EOSINOPHILS PERCENT AUTO 0 % (0-6); Hematocrit 44.5 % (37.0-53.0); Hemoglobin 15.8 g/dL (13.5-17.5); IMMATURE GRAN ABSOLUTE AUTO 0.02 K/mm3 (0.00-0.10); IMMATURE GRAN PERCENT AUTO 0 % (0-1); LYMPHOCYTES ABSOLUTE AUTO 1.89 K/mm3 (0.84-5.20); LYMPHOCYTES PERCENT AUTO 22 % (21-46); MONOCYTES ABSOLUTE AUTO 0.75 K/mm3 (0.16-1.47); MONOCYTES PERCENT AUTO 9 % (4-13); Mean Corpuscular HGB 33.8 pg (26.0-34.0); Mean Corpuscular HGB Conc 35.5 g/dL (31.5-36.5); Mean Corpuscular Volume 95 fL (80-100); Mean Platelet Volume 10.6 fL (9.1-12.4); NEUTROPHILS ABSOLUTE AUTO 5.93 K/mm3 (1.96-9.15); NEUTROPHILS PERCENT AUTO 69 % (41-73); Platelet Count 186 K/mm3 (150-400); RDW Coefficient Variation 12.8 % (11.7-14.2); RDW Standard Deviation 44.5 fL (35.1-46.3); Red Blood Cell Count 4.68 M/mm3 (4.30-5.90); White Blood Cell Count 8.63 K/mm3 (4.00-11.30)
[2019-03-21 16:59] LABS: Alanine Aminotransfer (ALT/SGP 59 U/L (12-78); Albumin, Blood 3.8 g/dL (3.4-5.0); Alk Phos 106 U/L (50-136); Anion Gap 7 mmol/L (6-16); Aspartate Aminotrans (AST/SGOT 62 U/L (12-37); Bilirubin, Total 0.5 mg/dL (0.1-1.0); Blood Urea Nitrogen 5 mg/dL (8-24); Bun/Creatinine Ratio 5.9 (12.0-20.0); CO2, Blood 26 mmol/L (21-32); Calcium, Blood 9.1 mg/dL (8.5-10.1); Chloride, Blood 103 mmol/L (98-108); Creatinine, Blood 0.85 mg/dL (0.60-1.20); Globulin, Blood 3.7 g/dL (2.2-4.0); Glomerular Filtration Rate >60 (60-); Glucose, Blood 123 mg/dL (70-99); Potassium, Blood 3.1 mmol/L (3.5-5.5); Sodium, Blood 136 mmol/L (136-145); Total Protein, Blood 7.5 g/dL (6.4-8.2); Troponin I <0.015 ng/mL (0.000-0.040)
[2019-03-21 17:36] LABS: Source, Urine Clean Catch
[2019-03-21 17:39] LABS: Appearance, Urine Clear (Clear); Blood, Urine Neg (Neg); Color, Urine Yellow (P-Yellow); Glucose Qualitative, Urine Neg (Neg); Ketones, Urine 1+ (Neg); Leukocyte Esterase, Urine 1+ (Neg); Nitrite, Urine Neg (Neg); Protein, Urine 2+ (Neg); Specific Gravity, Urine 1.015 (1.003-1.022); Urobilinogen, Urine 1+ (Normal)
[2019-03-21 17:56] LABS: U Amphetamine Screen Not Detected; U Barbituate Screen Not Detected; U Benzodiazapine Screen Not Detected; U Buprenorphine Screen Not Detected; U Cannabinoids Screen Not Detected; U Cocaine Screen Not Detected; U Methadone Screen Not Detected; U Methamphetamine Screen Not Detected; U Opiates Screen Not Detected; U Oxycodone Screen Not Detected; U Phencyclidine Screen Not Detected; U Propoxyphene Screen Not Detected
[2019-03-21 18:18] LABS: Bilirubin, Urine 1+ (Neg)
[2019-03-21 18:20] LABS: Bacteria Mod /hpf; Mucus Light (0-Heavy); Red Blood Cells, Urine Not Seen /hpf (0-2); Squamous Epithelial Cells Rare /hpf (Few)
[2019-03-21] MEDS ORDERED: CHLO25 PO (18:46)
== END 2019-03-21 19:15 | disposition home or self-care (01) ==
LOC: ER 16:07
PROVIDERS: Physician Assistant
DX: F10.239 Alcohol dependence with withdrawal, unspecified (principal); E87.6 Hypokalemia; F17.210 Nicotine dependence, cigarettes, uncomplicated
CPT/HCPCS: 36415; 71046; 80053; 81001; 83880; 84484; 85025; 87086; 93005; 93010; 96361; 96374; 96375; 99285-25; G0480; J2060; J2405; J7120